=== PATIENT | female | born 1990 | race Caucasian/White ===

== ENCOUNTER 2020-02-26 14:32 | Outpatient (REF) | payer OTHER, SELFPAY | END 2020-02-26 14:33 | disposition home or self-care (01) | LOC: HO.LNP 14:32 | PROVIDERS: Visit Provider Nurse Practitioner Family | DX: Z13.89 Encounter for screening for other disorder (principal) ==

== ENCOUNTER 2020-02-26 15:11 | Outpatient (REF) | payer OTHER, SELFPAY ==
[2020-02-27 10:16] LABS: BV Int Neg Control Negative (Negative); BV Int Pos Control Positive (Positive)
[2020-03-08 10:45] LABS: CT PCR NOT DETECTED (Not Detect.); NG PCR NOT DETECTED (Not Detect.)
== END 2020-02-26 15:12 | disposition home or self-care (01) ==
LOC: HO.LAB 15:11
PROVIDERS: Visit Provider Nurse Practitioner Family
DX: N89.8 Other specified noninflammatory disorders of vagina (principal); Z32.02 Encounter for pregnancy test, result negative
CPT/HCPCS: 87480; 87491; 87510; 87591; 87660

== ENCOUNTER 2020-03-02 12:21 | Outpatient (REF) | payer OTHER, SELFPAY ==
[2020-03-03 09:06] LABS: Mumps Virus IgG Antibody <9.00 AU/mL; Rubella IgG Antibody 1.21 Index
[2020-03-03 09:07] LABS: HBsAGNum1 0.15 S/CO (0.00-0.99); Hepatitis B Surface Antigen Negative (Negative); ~HepC Num1 0.08 S/CO (0.00-0.79); ~Hepatitis C Antibody Nonreactive (Nonreactive)
[2020-03-03 09:19] LABS: HBS Num1 74.62 mIU/mL (0-7.99); HBc Num1 0.13 S/CO (0.00-0.79); Hepatitis B Core Antibody Nonreactive (Nonreactive); ~Hepatitis B Surface Antibody REACTIVE (Nonreactive)
[2020-03-04 04:08] LABS: Hepatitis A Antibody IgM 0.12 Index (0-0.79); ~Hepatitis A Antibody IgM Nonreactive (Nonreactive)
[2020-03-05 14:33] LABS: TS Negative Control Passed; TS Panel A 0; TS Panel B 0; TS Positive Control Passed; TSpotTB Negative (SeeBelow)
== END 2020-03-02 12:22 | disposition home or self-care (01) ==
LOC: HO.HMGCLDS 12:21
PROVIDERS: PCP Nurse Practitioner Family; Visit Provider Nurse Practitioner Family
DX: Z01.84 Encounter for antibody response examination (principal); Z28.3 Underimmunization status
CPT/HCPCS: 36415; 86481; 86704; 86706; 86709; 86735; 86762; 86765; 86787; 86803; 87340

== ENCOUNTER → 2020-09-24 10:21 | Outpatient (BNVA) | payer OTHER, SELFPAY | PROVIDERS: PCP Nurse Practitioner Family; Visit Provider Advanced Practice Midwife ==

== ENCOUNTER 2020-10-27 13:27 | Outpatient (REF) | payer OTHER, SELFPAY ==
[2020-10-28 02:51] LABS: CT PCR NOT DETECTED (Not Detect.); NG PCR NOT DETECTED (Not Detect.)
[2020-10-28 10:14] LABS: BV Int Neg Control Negative (Negative); BV Int Pos Control Positive (Positive)
== END 2020-10-27 13:28 | disposition home or self-care (01) ==
LOC: HO.LAB 13:27
PROVIDERS: PCP Nurse Practitioner Family; Visit Provider Advanced Practice Midwife
DX: Z11.3 Encounter for screening for infections with a predominantly sexual mode of transmission (principal); N92.6 Irregular menstruation, unspecified; Z20.2 Contact with and (suspected) exposure to infections with a predominantly sexual mode of transmission
CPT/HCPCS: 81025; 87480; 87491; 87510; 87591; 87660; 99212

== ENCOUNTER 2020-11-16 11:18 | Outpatient (REF) | payer OTHER, SELFPAY ==
--- NOTE | ~2020-11-16 | US_ITS ---
EXAMINATION: US PELVIS CLINICAL INFORMATION: Irregular menses COMPARISON: None TECHNIQUE: Ultrasound of the pelvis is performed using both transabdominal and transvaginal transducers along with Doppler. Transvaginal imaging is performed due to inadequate visualization transabdominally. FINDINGS: The uterus is anteverted and measures 8.4 x 3.6 x 5.5 cm in dimension. No focal uterine lesion is seen. Endometrial thickness is normal measuring 1.1 cm. The cervix is normal. The right ovary is normal and measures 2.1 x 1.5 x 1.3 cm. The left ovary is slightly enlarged and measures 3.8 x 3 x 3 cm, volume 18 mL. There are 2 minimally complex left ovarian cysts measuring 1.8 x 1.6 x 2.2 cm and 1.3 x 1.2 x 1.6 cm. These probably represent physiologic cysts. There is no fluid in the pelvis. US/US pelvic and transvaginal IMPRESSION: Normal-appearing uterus and right ovary. Slightly enlarged left ovary containing 2 minimally complex cysts probably representing physiologic cysts.
== END 2020-11-16 11:19 | disposition home or self-care (01) ==
LOC: HO.US 11:18
PROVIDERS: PCP Nurse Practitioner Family; Visit Provider Advanced Practice Midwife
DX: N92.5 Other specified irregular menstruation (principal)
CPT/HCPCS: 76830; 76856

== ENCOUNTER 2020-12-24 09:14 | Outpatient (REF) | payer OTHER, SELFPAY ==
[2020-12-24 09:46] LABS: Hematocrit 40.7 % (37-47); Hemoglobin 13.3 g/dl (12.0-16.0); Mean Corpuscular HGB Conc 32.7 g/dl (31.0-35.0); Mean Corpuscular Hemoglobin 27.7 pg (27.0-33.0); Mean Corpuscular Volume 84.8 fL (80-98); Mean Platelet Volume 9.3 fL (9.4-12.3); Platelet Count 249 X10*3/uL (160-400); Red Cell Distribution Width 14.4 % (11.0-16.0); White Blood Count 3.8 X10*3/uL (4.8-10.8)
[2020-12-24 10:08] LABS: Alanine Aminotransferase 34 U/L (0-31); Albumin Level 4.2 g/dL (3.5-5.0); Alkaline Phosphatase 78 U/L (39-117); Anion Gap 11 (12-20); Aspartate Amino Transferase 26 U/L (5-31); Bilirubin Total 0.9 mg/dL (0.0-1.0); Blood Urea Nitrogen 12 mg/dL (9-16); Calcium 8.9 mg/dL (8.4-10.2); Carbon Dioxide 25 mmol/L (22-29); Chloride 105 mmol/L (96-108); Cholesterol 133 mg/dL; Estimated Glomerular Filt Rate > 60; Glucose Fasting 93 mg/dL (60-99); HDL Cholesterol 65 mg/dL; LDL Cholesterol Calculated 59 mg/dl; Potassium 4.9 mmol/L (3.3-5.1); Sodium 136 mmol/L (135-145); Total Protein 7.7 g/dL (6.5-8.0); Triglycerides 46 mg/dL
[2020-12-24 10:25] LABS: HIV AB/AG Nonreactive (Nonreactive); HIV Num 1 0.06 S/CO (0.00-0.99)
[2020-12-24 10:27] LABS: Thyroid Stimulating Hormone 2.14 uIU/mL (0.32-4.0)
[2020-12-24 10:33] LABS: TSH reflex Free T4 2.08 uIU/mL (0.32-4.0)
[2020-12-24 11:05] LABS: Appearance Urine CLEAR; Color Urine YELLOW; Glucose Urine UA NEG (NEG); Leukocyte Esterase Urine TRACE (NEG); Nitrite Urine NEG (NEG); Urine Blood NEG (NEG); Urine Ketones NEG (NEG); Urine Protein NEG (NEG-TRACE)
[2020-12-24 11:30] LABS: Bacteria Urine 1+ /LPF; RBC Urine 0-2 /HPF (0); Squamous Epithelial Cell Urine 1+ /LPF; WBC Urine 0-2 /HPF (0-4)
[2020-12-24 12:35] LABS: CT PCR NOT DETECTED (Not Detect.); NG PCR NOT DETECTED (Not Detect.)
[2020-12-25 06:48] LABS: Syphilis Screen Nonreactive (Nonreactive)
== END 2020-12-24 09:15 | disposition home or self-care (01) ==
LOC: HO.LAB 09:14
PROVIDERS: PCP Nurse Practitioner Family; Visit Provider Advanced Practice Midwife
DX: Z00.00 Encounter for general adult medical examination without abnormal findings (principal); Z11.3 Encounter for screening for infections with a predominantly sexual mode of transmission; Z11.4 Encounter for screening for human immunodeficiency virus [HIV]; N92.1 Excessive and frequent menstruation with irregular cycle
CPT/HCPCS: 36415; 80053; 80061; 81001; 84443; 85027; 86780; 87389; 87491; 87591

== ENCOUNTER → 2020-12-30 11:39 | Outpatient (BNVA) | payer OTHER, SELFPAY | PROVIDERS: PCP Nurse Practitioner Family; Visit Provider Advanced Practice Midwife ==

== ENCOUNTER → 2021-01-01 12:12 | Outpatient (BNVA) | payer OTHER, SELFPAY | PROVIDERS: Visit Provider Advanced Practice Midwife | DX: N83.299 Other ovarian cyst, unspecified side (principal); N92.6 Irregular menstruation, unspecified; Z71.2 Person consulting for explanation of examination or test findings | CPT/HCPCS: 96372; 99211; Q3014 ==

== ENCOUNTER 2021-01-18 10:42 | Outpatient (REF) | payer OTHER, SELFPAY ==
[2021-01-18 11:57] LABS: Alanine Aminotransferase 13 U/L (0-31); Albumin Level 4.3 g/dL (3.5-5.0); Alkaline Phosphatase 58 U/L (39-117); Anion Gap 13 (12-20); Aspartate Amino Transferase 15 U/L (5-31); Bilirubin Total 1.5 mg/dL (0.0-1.0); Blood Urea Nitrogen 10 mg/dL (9-16); Calcium 9.2 mg/dL (8.4-10.2); Carbon Dioxide 22 mmol/L (22-29); Chloride 107 mmol/L (96-108); Cholesterol 128 mg/dL; Estimated Glomerular Filt Rate > 60; Glucose Fasting 85 mg/dL (60-99); HDL Cholesterol 59 mg/dL; LDL Cholesterol Calculated 53 mg/dl; Potassium 4.1 mmol/L (3.3-5.1); Sodium 138 mmol/L (135-145); Total Protein 7.9 g/dL (6.5-8.0); Triglycerides 81 mg/dL
[2021-01-18 12:20] LABS: TSH reflex Free T4 1.57 uIU/mL (0.32-4.0)
[2021-01-18 12:23] LABS: Syphilis Screen Nonreactive (Nonreactive)
[2021-01-18 14:42] LABS: Appearance Urine HAZY; Color Urine YELLOW; Glucose Urine UA NEG (NEG); Leukocyte Esterase Urine TRACE (NEG); Nitrite Urine NEG (NEG); UACC Culture Trigger YES; Urine Blood NEG (NEG); Urine Ketones NEG (NEG); Urine Protein NEG (NEG-TRACE)
[2021-01-18 15:15] LABS: RBC Urine 0-2 /HPF (0)
[2021-01-18 15:16] LABS: Bacteria Urine TRACE /LPF; Squamous Epithelial Cell Urine 1+ /LPF
[2021-01-18 15:55] LABS: CT PCR NOT DETECTED (Not Detect.); NG PCR NOT DETECTED (Not Detect.)
[2021-01-19 05:51] LABS: HIV AB/AG Nonreactive (Nonreactive); HIV Num 1 0.08 S/CO (0.00-0.99)
== END 2021-01-18 10:43 | disposition home or self-care (01) ==
LOC: HO.HMGCLDS 10:42
PROVIDERS: PCP Nurse Practitioner Family; Visit Provider Nurse Practitioner Family
DX: F41.9 Anxiety disorder, unspecified (principal); Z11.3 Encounter for screening for infections with a predominantly sexual mode of transmission; Z00.00 Encounter for general adult medical examination without abnormal findings
CPT/HCPCS: 80053; 80061; 81001; 81003; 84443; 86780; 87086; 87389; 87491; 87591

== ENCOUNTER 2021-03-30 13:49 | Outpatient (REF) | payer OTHER, SELFPAY ==
--- NOTE | ~2021-03-30 | US_ITS ---
EXAMINATION: US PELVIS CLINICAL INFORMATION: Ovarian cyst. COMPARISON: Ultrasound pelvis and transvaginal 11/18/2020 TECHNIQUE: Ultrasound of the pelvis is performed using both transabdominal and transvaginal transducers along with Doppler. Transvaginal imaging is performed due to inadequate visualization transabdominally. FINDINGS: Uterus: The uterus is anteverted and measures 8.9 cm in length, 4.2 cm in AP and 5.0 cm in transverse dimension. The double wall endometrial thickness is 0.6 mm. The uterus is smooth in contour and has normal myometrial echogenicity. No visible fibroid. Adnexa: Both ovaries are visualized. There is normal color-flow to the adnexa. There is no ovarian torsion. There is no pelvic ascites or fluid collection. Right ovary measures 3.7 x 1.5 x 1.7 cm and volume 4.9 mL. There is no focal lesion seen. Previously, the right ovary measured 2.1 x 1.5 x 1.3 cm and volume 2.1 mL. Left ovary measures 3.1 x 2.7 x 3.1 cm and volume 13.6 mL. There is an anechoic simple cyst measuring 2.3 x 2.0 x 1.6 cm and a complex cyst with internal echoes measuring 1.1 x 1.1 x 0.7 cm. Previously, the left ovary measured 3.8 x 3.0 x 3.0 cm and volume 17.9 mL. US/US pelvic and transvaginal IMPRESSION: Simple and complex cyst left ovary. The right ovary and the uterus are unremarkable.
== END 2021-03-30 13:50 | disposition home or self-care (01) ==
LOC: HO.US 13:49
PROVIDERS: PCP Nurse Practitioner Family; Visit Provider Advanced Practice Midwife
DX: N83.299 Other ovarian cyst, unspecified side (principal)
CPT/HCPCS: 76830; 76856

== ENCOUNTER → 2021-04-29 11:12 | Outpatient (BNVA) | payer OTHER, SELFPAY | PROVIDERS: PCP Nurse Practitioner Family; Visit Provider Advanced Practice Midwife | DX: N83.292 Other ovarian cyst, left side (principal); R10.2 Pelvic and perineal pain; N92.1 Excessive and frequent menstruation with irregular cycle; Z30.42 Encounter for surveillance of injectable contraceptive | CPT/HCPCS: Q3014 ==

== ENCOUNTER 2021-10-02 16:50 | Emergency (ER) | payer OTHER, SELFPAY ==
[2021-10-02 16:52] VITALS: BP 105/49; PULSE 89; RESP 16; TEMP 37.2; O2SAT 99; BMI 33.8
[2021-10-02] MEDS: Diphth,Pertus(ACell),Tet Adult 0.5 ML SYRINGE IM (17:40)
--- NOTE | 2021-10-02 17:56 | ED_ITS ---
HPI - Animal Bite General Chief Complaint: Animal Bite Stated Complaint: animal bite Time Seen by Provider: 10/02/21 17:31 History of Present Illness HPI narrative: Patient complains of bite from a baby mole that she picked up while she was walking 7 days ago, she has had no pain no redness no signs of infection but a friend mentioned concern about possible rabies she has had no fever no headaches no dizziness no body aches Related Data Previous Rx's Medication Instructions Recorded medroxyprogesterone 150 mg/mL 150 mg IM [id number] #1 mL 01/01/21 intramuscular suspension (Depo-Provera) Allergies Allergy/AdvReac Type Severity Reaction Status Date / Time shellfish derived Allergy Unknown itchy Verified 04/29/21 11:13 throat, tongue swelling aripiprazole [Abilify] AdvReac Unknown Hallucinati Verified 04/29/21 11:13 ons Review of Systems Review of Systems: Positive for left thumb animal bite Negatives are no fever no chills no dizziness no headache no neck pain no chest pain no shortness of breath no abdominal pain no nausea vomiting or diarrhea no fatigue no body aches no headache no confusion Yes all other systems are reviewed and are negative [facility] Past Medical History Source: nursing notes reviewed Medical History Complex ovarian cyst Decreased appetite Left breast mass Menorrhagia Paresthesia of skin Surgical History Hx of breast reduction, elective Family History Family History Father No problems noted. Mother No problems noted. Social History Social History Housing: Apartment Alcohol intake: current Alcohol intake frequency: holidays/special occasions only Patient Tobacco Use Status: Never used Tobacco Years Smoked: she smoked when she was 14 e-Cigarette/Vaping Use: Never Used Second Hand Smoke Exposure: Yes Advance Directives: No Advance Directives Information Provided: No service: No Current occupational status: employed Current occupation: [employer] Current occupational exposures/hazards: No Physical Exam ED Vital Signs: Vital Signs - 24 hr 10/02/21 16:52 Temperature 99.0 F Pulse Rate 89 Respiratory Rate 16 Blood Pressure 105/49 L Pulse Oximetry 99 Oxygen Delivery Method Room Air BMI result Body Mass Index 33.8 General appearance is no acute distress Head is normocephalic atraumatic Neck is supple Respiratory no distress Extremities full range of motion x4 Left thumb normal appearance no evidence of any wound neurovascular intact and full range of motion no swelling Neuro no focal deficits Course Course Course Narrative: I confirmed with [facility] of [facility] epidemiology us to that road and bites and specifically mole bites do not need any rabies prophylaxis and patient got a tetanus shot in was discharged Discharge Plan Discharge Clinical Impression: Bitten by mouse Patient Disposition: Home, Self-Care Additional Instructions: We gave you a tetanus shot There is no sign of any infection now We confirmed that a mole does not give rabies and you have no need to be concerned about that Prescriptions: No Action medroxyprogesterone [Depo-Provera] 150 mg/mL suspension 150 mg IM [id number] Qty: 1 3RF
== END 2021-10-02 18:08 | disposition home or self-care (01) ==
PROVIDERS: Emergency Provider Student in an Organized Health Care Education/Training Program; PCP Nurse Practitioner Family
DX: S61.052A Open bite of left thumb without damage to nail, initial encounter (principal); W55.81XA Bitten by other mammals, initial encounter; Y93.01 Activity, walking, marching and hiking; Y92.9 Unspecified place or not applicable; Y99.9 Unspecified external cause status
CPT/HCPCS: 90471; 90715; 99282; 99284

== ENCOUNTER 2022-02-08 10:22 | Emergency (ER) | payer OTHER, SELFPAY ==
--- NOTE | 2022-02-08 10:49 | ED.PSYCH ---
HPI - Psych General Chief Complaint: Psychiatric Symptoms Stated Complaint: Crisis Eval Time Seen by Provider: 02/08/22 10:45 Source: patient Limitations: no limitations History of Present Illness HPI Narrative: This is a 31 years old female was sent here by a the partial hospitalization program because auditory hallucination. The patient denies SI and HI. She has history of PTSD, she has history of major depression disorder with psychotic feature MD complaint: hallucinations Onset (ago): day(s) (1) Duration: constant History of same: Yes Relieving factors: none Exacerbating factors: none Associated psychiatric symptoms: none Related Data Home Medications Medication Instructions Recorded Confirmed lorazepam 1 mg tablet 1 mg PO BID 01/03/22 01/06/22 ondansetron HCl 4 mg tablet 4 mg PO Q6H PRN nausea/vomiting 01/03/22 01/06/22 Previous Rx's Medication Instructions Recorded hydroxyzine pamoate 50 mg capsule 50 mg PO TID PRN anxiety #90 caps 01/18/22 bupropion HCl 300 mg 24 hr tablet, 300 mg PO QAM #30 tabs 01/24/22 extended release buspirone 15 mg tablet 15 mg PO BID #60 tabs 01/24/22 prazosin 1 mg capsule 1 mg PO BEDTIME #30 caps 01/24/22 prazosin 2 mg capsule 2 mg PO BEDTIME #30 caps 01/24/22 trazodone 100 mg tablet 100 mg PO BEDTIME PRN sleep #30 01/24/22 tabs risperidone 1 mg tablet 1 mg PO BID #60 tabs 02/04/22 Allergies Allergy/AdvReac Type Severity Reaction Status Date / Time shellfish derived Allergy Unknown itchy Verified 01/03/22 11:04 throat, tongue swelling mushroom Allergy Hives Verified 01/06/22 12:10 pear Allergy Itching Verified 01/06/22 12:10 strawberry Allergy Hives Verified 01/06/22 12:10 sunflower seed Allergy Itching Verified 01/06/22 12:11 aripiprazole [Abilify] AdvReac Unknown Hallucinati Verified 01/03/22 11:04 ons Review of Systems Constitutional: Constitutional: Reports no additional constitutional complaints ENT: Reports system reviewed and no additional complaints, except as documented Cardiovascular: Cardiovascular: Reports no additional cardiovascular complaints Respiratory: Respiratory: Reports no additional respiratory complaints Gastrointestinal: Gastrointestinal: Reports no additional gastrointestinal complaints Neurologic: Reports system reviewed and no additional complaints, except as documented REPLACED BY [facility] Past Medical History Medical History Complex ovarian cyst Decreased appetite Left breast mass Menorrhagia Paresthesia of skin Scoliosis Surgical History Hx of breast reduction, elective Family History Family History Father No problems noted. Mother No problems noted. Social History Social History Household Members: None Housing: Apartment Alcohol intake: current Alcohol intake frequency: does not drink Patient Tobacco Use Status: Never used Tobacco Years Smoked: she smoked when she was 14 Smoked in Last 30 Days: No e-Cigarette/Vaping Use: Never Used Second Hand Smoke Exposure: Yes Substance Use Type: Marijuana Advance Directives: No Advance Directives Information Provided: Yes service: No Current occupational status: employed Current occupation: [employer] Current occupational exposures/hazards: No Cognitive needs: No Hearing needs: No Vision needs: No Physical Exam Vital Signs: Vital Signs: Last Vital Signs Temp 99.4 F 02/08/22 10:51 Pulse 72 02/08/22 10:51 Resp 20 02/08/22 10:51 BP 126/84 02/08/22 10:51 Pulse Ox 98 02/08/22 10:51 O2 Del Method 02/08/22 10:51 BMI result Body Mass Index 32.9 Const: General: cooperative Nutritional Appearance: average body habitus Orientation/consciousness: patient oriented x3 HEENT: Head: Yes normal to inspection General nose exam: Normal external nose present Face and sinus: Yes normal facial exam Mouth: Normal oral and palatal mucosa present Throat: Yes posterior oropharynx normal Neck: Neck: Yes normal visual inspection Chest: Chest palpation & inspection: normal inspection of the chest Resp: Effort & Inspection: normal respiratory effort Auscultation: clear to auscultation bilaterally Cardio: Palpation: normal PMI Rate: regular rate GI: Inspection: Yes normal to inspection Palpation (GI): Soft to palpation, not firm, nontender and no guarding Skin: General skin exam: no rashes or lesions noted and elasticity normal Rashes: no rashes Neuro: General: patient oriented x3 Course Reevaluation(s) Reevaluation #1: seen by crisis cleared for d/c home Time: 15:07 Medical Decision Making Lab Data Labs: Lab Results 02/08/22 02/08/22 02/08/22 Range/Units 11:04 11:04 11:04 Urine Color Yellow Urine Appearance Cloudy Urine pH 7.0 (5.0-9.0) Ur Specific [place] >= 1.030 H (1.005-1.025) Urine Protein Trace (Neg-Trace) mg/dL Urine Glucose (UA) Negative (Negative) mg/dL Urine Ketones Negative (Negative) mg/dL Urine Blood Negative (Negative) Urine Nitrite Negative (Negative) Ur Leukocyte Esterase Moderate (2+) H (Negative) Urine RBC 3-5 H (0-2) /HPF Urine WBC 0-5 (0-5) /HPF Ur Squamous Epith Cells >20 (0-2) /HPF Urine Bacteria 1+ (None Seen) Hyaline Casts 0-2 (0-2) /LPF Urine Opiates Screen Not Detected (Not Detect) Urine Fentanyl Screen Not Detected (Not Detect) Ur Barbiturates Screen Not Detected (Not Detect) Ur Phencyclidine Scrn Not Detected (Not Detect) Ur Amphetamines Screen Not Detected (Not Detect) U Benzodiazepines Scrn Not Detected (Not Detect) Urine Cocaine Screen Not Detected (Not Detect) U Marijuana (THC) Screen POSITIVE H (Not Detect) Influenza Type A (PCR) NEGATIVE (Negative) Influenza Type B (PCR) NEGATIVE (Negative) RSV RNA Qual (PCR) NEGATIVE (Negative) SARS-CoV-2 RNA (RT-PCR) NEGATIVE (Negative) Discharge Plan Discharge Clinical Impression: Post traumatic stress disorder, Depression Patient Disposition: Home, Self-Care Instructions: Depression (ED), Post Traumatic Stress Disorder (ED) Prescriptions: No Action hydroxyzine pamoate 50 mg capsule 50 mg PO TID PRN (Reason: anxiety) Qty: 90 0RF prazosin 1 mg capsule 1 mg PO BEDTIME Qty: 30 0RF prazosin 2 mg capsule 2 mg PO BEDTIME Qty: 30 0RF bupropion HCl 300 mg tablet extended release 24 hr 300 mg PO QAM Qty: 30 0RF buspirone 15 mg tablet 15 mg PO BID Qty: 60 0RF trazodone 100 mg tablet 100 mg PO BEDTIME PRN (Reason: sleep) Qty: 30 0RF risperidone 1 mg tablet 1 mg PO BID Qty: 60 0RF lorazepam 1 mg tablet 1 mg PO BID ondansetron HCl 4 mg tablet 4 mg PO Q6H PRN (Reason: nausea/vomiting) Referrals: Saroj Mercado FNP-BC [Primary Care Provider] - 2 days Interventions: [place]-Suicide Risk Severity Scale Last Done: 02/08/22 10:54 ED Discharge Assessment Last Done: 02/08/22 15:26 Discharge Date/Time: 02/08/22 15:26
[2022-02-08 10:51] VITALS: BP 126/84; PULSE 72; RESP 20; TEMP 37.4; O2SAT 98; BMI 32.9
[2022-02-08 11:19] LABS: Appearance Urine Cloudy; Color Urine Yellow; Glucose Urine UA Negative (Negative); Leukocyte Esterase Urine Moderate (2+) (Negative); Nitrite Urine Negative (Negative); Specific Gravity - Urine >= 1.030 (1.005-1.025); UMIC TRIGGER UACC YES; Urine Blood Negative (Negative); Urine Ketones Negative (Negative); Urine Protein Trace mg/dL (Neg-Trace)
[2022-02-08 11:27] LABS: Amphetamine Screen Urine Not Detected (Not Detect); Bacteria Urine 1+ (None Seen); Barbiturates, Urine Not Detected (Not Detect); Benzodiazepines Screen Urine Not Detected (Not Detect); Cannabinoid Screen Urine POSITIVE (Not Detect); Cocaine Screen Urine Not Detected (Not Detect); Fentanyl, urine Not Detected (Not Detect); Hyaline Casts Urine 0-2 /LPF (0-2); Opiate Screen Urine Not Detected (Not Detect); Phencyclidine Screen Urine Not Detected (Not Detect); Squamous Epithelial Cell Urine >20 /HPF (0-2); WBC Urine 0-5 /HPF (0-5)
[2022-02-08 11:58] LABS: Influenza A PCR NEGATIVE (Negative); Influenza B PCR NEGATIVE (Negative); Resp Syncy Virus RNA Qual PCR NEGATIVE (Negative); SARS COV2 PCR INHOUSE NEGATIVE (Negative)
== END 2022-02-08 15:26 | disposition home or self-care (01) ==
PROVIDERS: Emergency Provider Emergency Medicine; PCP Nurse Practitioner Family
DX: R44.0 Auditory hallucinations (principal); F33.1 Major depressive disorder, recurrent, moderate; F43.10 Post-traumatic stress disorder, unspecified; Z20.822 Contact with and (suspected) exposure to COVID-19; Z79.899 Other long term (current) drug therapy
CPT/HCPCS: 0241U; 80307; 81001; 99284

== ENCOUNTER 2022-02-17 09:15 | Outpatient (RCR) | payer OTHER, SELFPAY ==
[2022-01-06 12:05] VITALS: BMI 30.9
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
--- NOTE | 2022-01-06 14:12 | HO.PHPIOP ---
Case opened in treatment team.
--- NOTE | 2022-01-11 08:21 | HO.PHPIOP ---
The client called out because she is not feeling well.
--- NOTE | 2022-01-12 13:39 | P.PNPSP_ITS ---
Subjective Subjective Date of Service: 01/12/22 Reason For Visit: PTSD,MDD Medical Problems Affecting Mental Status: No Interim History: Feels mood starting to improve. More motivation, more energy in morning. Has stopped naps, night time sleep improved. States that she is functioning more. Finding PHP groups to be helpful. Continues with some passive SI, no intent or plan. Finding increased doses of Wellbutrin and prazosin helpful. Medication Compliance: Yes Side effects from medications: No Attending Groups: Yes Review of Systems Acute medical concerns: No Medical Review of Systems: unchanged Review of Systems Review of Systems Yes all other systems are reviewed and are negative Constitutional: Reports no additional constitutional complaints Mental Status Exam Mental Status Exam Narrative: NAD Patient Appearance: Well Grooomed and Appropriate Patient Orientation: Person, Place, Time and Situation Level of Consciousness: Awake and Appropriate Patient Behavior: Appropriate, Cooperative and Good Eye Contact Mood Description: Depressed (lessened) Affect Description: Depressed (Appears improving) Patient Cognition Impaired: No Ability to Follow Directions: Excellent Speech Pattern: Clear and Appropriate Memory Description: Intact Delusions: Not Present Perceptual Disturbances: Depersonalization Thought Process: Intact Thought Content: positive for Suicidal Ideation (Passive, no intent or plan at this time.) Depressive Symptoms: Increased Anxiety, Loss of Int. in Activity, Unhappiness, Thoughts of /Suicide and Difficulty Concentrating Judgement: Fair Diagnostics Vital Signs (24Hr): BMI result Body Mass Index 30.9 Assessment & Plan Assessment & Plan (1) Major depressive disorder, recurrent severe without psychotic features: Status: Acute Code(s): F33.2 - Major depressive disorder, recurrent severe without psychotic features Assessment and Plan: Feels mood starting to improve. Less vegetative symptoms. More motivation, more energy in morning. Able to get out of bed easier, get day started. Has stopped naps, not as fatigued during day. States that she is functioning more. Finding PHP groups to be helpful. Continues with some passive SI, no intent or plan. Finding increased doses of Wellbutrin and prazosin helpful. Would like to continue with current medication doses. (2) Post-traumatic stress disorder, chronic: Status: Acute Code(s): F43.12 - Post-traumatic stress disorder, chronic Plan 1. Continue with current [facility] plan of care. 2. Continue with current medication regimen. 3. Follow-up as per protocol. Patient educated on: diagnosis, medication risk/benefits and therapeutic strategies Informed Consent: understands Reason for contiued partial hosp. stay Substantial Risk for: harm to self and inability to function Certification I certify that partial hospital treatment is medically necessary due to the symptoms and problems resulting from the patient's mental illness and the failure to treat the patient at the partial hospital level of care would likely result in the patient requiring inpatient psychiatric care which could not be prevented at a less intensive level of care. I spent minutes with the patient and/or on the patient floor today, greater than?50% of which was spent counseling/coordinating care. Discharge Plan Discharge Attending provider: Arnol Shannon Medications: New prazosin 1 mg capsule 1 mg PO BEDTIME Qty: 14 0RF Rx Instructions: Take prazosin 1mg with prazosin 2mg, for total daily dose 3mg. bupropion HCl 300 mg tablet extended release 24 hr 300 mg PO QAM Qty: 14 0RF Discontinued bupropion HCl 150 mg tablet extended release 24 hr 150 mg PO DAILY No Action lorazepam 1 mg tablet 1 mg PO BID prazosin 2 mg capsule 2 mg PO BEDTIME hydroxyzine pamoate 25 mg capsule 25 mg PO TID PRN (Reason: anxiety) buspirone 15 mg tablet 15 mg PO BID trazodone 100 mg tablet 100 mg PO BEDTIME ondansetron HCl 4 mg tablet 4 mg PO Q6H PRN (Reason: nausea/vomiting)
--- NOTE | 2022-01-13 14:04 | PC.NURSE ---
Patient called out sick to the program this morning. I called patient and left her a voice mail to call me back to f/u.
--- NOTE | 2022-01-14 08:52 | PC.NURSE ---
Patient called out sick this morning. I spoke to Charley and she reported she had been vomitting with diarrhea. She stated she is drinking pedialyte. I advised Donald to call her PCP to f/u. Denied fever.
--- NOTE | 2022-01-18 15:53 | P.PNPSP_ITS ---
Subjective Subjective Date of Service: 01/18/22 Reason For Visit: PTSD,MDD Medical Problems Affecting Mental Status: No Interim History: Reports depression has lessened, anxiety remains same. Nightmares managed at this time with prazosin. Feels the increased dose of Wellbutrin is helping with depression. Interested in increasing hydroxyzine dose. No SI, no safety concern at this time. Plans on cooking Thanksgiving dinner for family. Medication Compliance: Yes Side effects from medications: No Attending Groups: Yes Review of Systems Acute medical concerns: No Medical Review of Systems: unchanged Review of Systems Review of Systems Yes all other systems are reviewed and are negative Constitutional: Reports no additional constitutional complaints Mental Status Exam Mental Status Exam Narrative: NAD Patient Appearance: Well Grooomed and Appropriate Patient Orientation: Person, Place, Time and Situation Level of Consciousness: Awake and Appropriate Patient Behavior: Appropriate, Cooperative and Good Eye Contact Mood Description: Depressed (lessened) and Anxious Affect Description: Depressed (Appears improving) and Anxious Patient Cognition Impaired: No Ability to Follow Directions: Excellent Speech Pattern: Clear and Appropriate Memory Description: Intact Delusions: Not Present Perceptual Disturbances: Depersonalization Thought Process: Intact Depressive Symptoms: Increased Anxiety, Loss of Int. in Activity and Difficulty Concentrating Judgement: Fair Diagnostics Vital Signs (24Hr): BMI result Body Mass Index 30.9 Assessment & Plan Assessment & Plan (1) Post-traumatic stress disorder, chronic: Status: Acute Code(s): F43.12 - Post-traumatic stress disorder, chronic Assessment and Plan: Discussed prazosin. Feels current dose working well to help manage nightmares. Continues feeling anxious, discussed increasing hydroxyzine to 50 mg t.i.d. p.r.n.. Patient was in agreement. (2) Major depressive disorder, recurrent severe without psychotic features: Status: Acute Code(s): F33.2 - Major depressive disorder, recurrent severe without psychotic features Assessment and Plan: Feels the increased Wellbutrin dose is helping manage depression symptoms. Continues feeling overwhelmed regarding work situation, states that it is still not resolved. Reports feeling better regarding school, feels that it is more manageable at this time. No SI, no safety concerns. Plan 1. Continue with current [facility] plan of care. 2. Increase hydroxyzine to 50 mg t.i.d. p.r.n./anxiety. 3. Continue with other medications as currently prescribed. 4. Follow-up as per protocol. Patient educated on: diagnosis, medication risk/benefits and therapeutic strategies Informed Consent: understands Reason for contiued partial hosp. stay Substantial Risk for: harm to self and inability to function Certification I certify that partial hospital treatment is medically necessary due to the symptoms and problems resulting from the patient's mental illness and the failure to treat the patient at the partial hospital level of care would likely result in the patient requiring inpatient psychiatric care which could not be prevented at a less intensive level of care. I spent minutes with the patient and/or on the patient floor today, greater than?50% of which was spent counseling/coordinating care. Discharge Plan Discharge Attending provider: Arnol Shannon Medications: New prazosin 1 mg capsule 1 mg PO BEDTIME Qty: 14 0RF Rx Instructions: Take prazosin 1mg with prazosin 2mg, for total daily dose 3mg. bupropion HCl 300 mg tablet extended release 24 hr 300 mg PO QAM Qty: 14 0RF hydroxyzine pamoate 50 mg capsule 50 mg PO TID PRN (Reason: anxiety) Qty: 90 0RF Discontinued bupropion HCl 150 mg tablet extended release 24 hr 150 mg PO DAILY hydroxyzine pamoate 25 mg capsule 25 mg PO TID PRN (Reason: anxiety) No Action lorazepam 1 mg tablet 1 mg PO BID prazosin 2 mg capsule 2 mg PO BEDTIME buspirone 15 mg tablet 15 mg PO BID trazodone 100 mg tablet 100 mg PO BEDTIME ondansetron HCl 4 mg tablet 4 mg PO Q6H PRN (Reason: nausea/vomiting)
--- NOTE | 2022-01-24 11:03 | HO.PHPPROGNO ---
Subjective Subjective Date of Service: 01/24/22 Reason For Visit: PTSD,MDD Medical Problems Affecting Mental Status: No Interim History: Describes mood as eh . Increased anxiety. Feels 'scattered . Increased frequency intrusive thoughts, passive SI. No medications past 2 days, due to mix-up with new VNA. Now has a lock-box with nurse administration of meds. Medication Compliance: Yes (when available) Side effects from medications: No Attending Groups: Yes Review of Systems Acute medical concerns: No Medical Review of Systems: unchanged Review of Systems Review of Systems Yes all other systems are reviewed and are negative Constitutional: Reports no additional constitutional complaints Mental Status Exam Mental Status Exam Narrative: NAD. anxious, wearing hoodie Patient Appearance: Appropriate Patient Orientation: Person, Place, Time and Situation Level of Consciousness: Awake and Appropriate Patient Behavior: Appropriate, Cooperative and Good Eye Contact Mood Description: Depressed and Anxious Affect Description: Depressed and Anxious Patient Cognition Impaired: No Ability to Follow Directions: Excellent Speech Pattern: Clear and Appropriate Memory Description: Intact Hallucinations: Auditory (voices, describes as more like intrusive thoughts) Delusions: Not Present Perceptual Disturbances: Depersonalization Thought Process: Intact Thought Content: positive for Obsessional Thoughts (intrusive thoughts to grab a knife, skin myself, or cut myself ) and positive for Suicidal Ideation (passive, denies any intent to harm self) Depressive Symptoms: Increased Anxiety, Loss of Int. in Activity and Difficulty Concentrating Judgement: Fair Diagnostics Vital Signs (24Hr): BMI result Body Mass Index 30.9 Assessment & Plan Assessment & Plan (1) Post-traumatic stress disorder, chronic: Status: Acute Code(s): F43.12 - Post-traumatic stress disorder, chronic Assessment and Plan: Patient reported in group this morning that she was hearing voices. Reports to this scientific writer that they are more intrusive thoughts, states that she has had them on and off throughout . Describes them as ?feeding into my SI ?. Denies any actual SI at this time, reports that she feels safe, and has no intent or plan to harm herself in any way. Patient explains that a visiting nurse service began working with her MondayJanuary 19. There was a mix up, and she had no medications available for past several days, as her meds were locked in a box. Reports miscommunication has been resolved. Charley reports experiencing increased depression, anxiety, intrusive thoughts of self-harm. Describes her thoughts today as scattered, unable to focus. We discussed current medication regimen, and possibility of adding Risperdal at bedtime to help manage AH/intrusive thoughts. She was in agreement. (2) Major depressive disorder, recurrent severe without psychotic features: Status: Acute Code(s): F33.2 - Major depressive disorder, recurrent severe without psychotic features Plan 1. Continue with current [facility] plan of care. 2. Start risperidone 0.5 mg at bedtime. 3. Refills of Wellbutrin, BuSpar, prazosin, trazodone, 30-day supplies, sent to pharmacy. 4. Follow-up as per protocol. Patient educated on: diagnosis, medication risk/benefits and therapeutic strategies Informed Consent: understands Reason for contiued partial hosp. stay Substantial Risk for: harm to self and inability to function Certification I certify that partial hospital treatment is medically necessary due to the symptoms and problems resulting from the patient's mental illness and the failure to treat the patient at the partial hospital level of care would likely result in the patient requiring inpatient psychiatric care which could not be prevented at a less intensive level of care. I spent minutes with the patient and/or on the patient floor today, greater than?50% of which was spent counseling/coordinating care. Discharge Plan Discharge Attending provider: Arnol Shannon Medications: New hydroxyzine pamoate 50 mg capsule 50 mg PO TID PRN (Reason: anxiety) Qty: 90 0RF prazosin 1 mg capsule 1 mg PO BEDTIME Qty: 30 0RF prazosin 2 mg capsule 2 mg PO BEDTIME Qty: 30 0RF bupropion HCl 300 mg tablet extended release 24 hr 300 mg PO QAM Qty: 30 0RF buspirone 15 mg tablet 15 mg PO BID Qty: 60 0RF trazodone 100 mg tablet 100 mg PO BEDTIME PRN (Reason: sleep) Qty: 30 0RF risperidone 0.5 mg tablet 0.5 mg PO BEDTIME Qty: 30 0RF Discontinued prazosin 2 mg capsule 2 mg PO BEDTIME bupropion HCl 150 mg tablet extended release 24 hr 150 mg PO DAILY hydroxyzine pamoate 25 mg capsule 25 mg PO TID PRN (Reason: anxiety) buspirone 15 mg tablet 15 mg PO BID trazodone 100 mg tablet 100 mg PO BEDTIME No Action lorazepam 1 mg tablet 1 mg PO BID ondansetron HCl 4 mg tablet 4 mg PO Q6H PRN (Reason: nausea/vomiting)
--- NOTE | 2022-01-31 10:01 | PC.NURSE ---
Patient did not show up to the program this morning. Stated she is feeling depressed and tired. Asked if she was having any SI and she stated she is having some thoughts however she denied having any plan or intent. Stated she is safe and is home with her partner. Talked to her about the importance of attending PHP consistently to help stabilize her mood. Patient plans on attending tomorrow.
--- NOTE | 2022-02-01 11:58 | HO.PHPIOP ---
I met with the client to talk about informing her family about her increased symptoms and thoughts of self harm. She states that her boyfriend is staying with her this week. She also agreed to call her mother to let her know and I sat with her while she called. She made a told her mother that she is struggling and they made a plan if the voices or thoughts get worse she will turn over a cup on her mothers kitchen table as a sign that she needs more help. The client contracts for safety and has the number for crisis which she has used in the past.
--- NOTE | 2022-02-01 14:15 | P.PNPSP_ITS ---
Subjective Subjective Date of Service: 02/01/22 Reason For Visit: PTSD,MDD Medical Problems Affecting Mental Status: No Interim History: Increased AH, telling her she would be better off . SI, with thoughts of driving car into a tress, running into traffic. Says lately has had thoughts of hanging herself. Denies any intent. VH, shadows and lights . Poor sleep. Medication Compliance: Yes Side effects from medications: No Attending Groups: Yes Review of Systems Acute medical concerns: No Medical Review of Systems: unchanged Review of Systems Review of Systems Yes all other systems are reviewed and are negative Constitutional: Reports no additional constitutional complaints Mental Status Exam Mental Status Exam Narrative: Wearing prescription sunglasses, winter jacket. SI, no intent. +AH, +VH. Tearful during encounter. Patient Appearance: Appropriate Patient Orientation: Person, Place, Time and Situation Level of Consciousness: Appropriate Patient Behavior: Appropriate, Cooperative, Anxious and Poor Eye Contact Mood Description: Depressed and Anxious Affect Description: Withdrawn, Depressed and Anxious Patient Cognition Impaired: No Ability to Follow Directions: Good Speech Pattern: Clear and Appropriate Memory Description: Intact Hallucinations: Auditory (voices saying she is no good , not supposed to be here , better off . ) and Visual Delusions: Not Present Perceptual Disturbances: Depersonalization Thought Process: Intact Thought Content: positive for Suicidal Ideation Depressive Symptoms: Increased Anxiety, Difficulty Sleeping, Crying Spells, Loss of Int. in Activity, Feelings of Worthlessness, Hopelessness, Isolating- Friends/Family, Feelings of Guilt, Unhappiness, Increased Fatigue, Thoughts of /Suicide and Difficulty Concentrating Judgement: Fair Diagnostics Vital Signs (24Hr): BMI result Body Mass Index 30.9 Assessment & Plan Assessment & Plan (1) Severe recurrent major depressive disorder with psychotic features: Status: Acute Code(s): F33.3 - Major depressive disorder, recurrent, severe with psychotic symptoms Assessment and Plan: Tearful during encounter. Has been having increased SI thoughts. States that they range from driving car into tree, cutting herself, running into street, and most recently hanging herself. States that she took sometimes has been having thoughts of going through with these, although she denies any intent at this time. Patient reports poor sleep, feeling overwhelmed. Reports having a conversation [id number] with her mother yesterday. States that she heard her mother say a sentence, which her mother reports that she did not say. This is causing patient increased anxiety, as she believes her symptom s have begun to decompensate. Increased auditory and visual hallucinations. Voices have been telling her that she is no good, that she is not supposed to be here, that none of this is right, her being here, and that she is supposed to be . Patient was tearful throughout encounter. Clinician joined us during meeting. Discussed patient's current symptoms, and safety. Reviewed the followin. She has visiting nurse that comes twice weekly, with medications in locked box. Nurse scheduled to come today at 3:00pm. 2. She is willing to take increased risperidone dose. Dose of 0.5mg BID ordered today. 3. She says her boyfriend is staying with her, will consider speaking with him on phone with clinician in order to inform him of safety concerns. She says she will not be alone. 4. Patient states that she has crisis number on her phone, and will text or call them if feels that she will act upon SI. She was recently hospitalized in November, and does not wish to go to crisis for eval, as she does not want to go back inpatient. 5. She states that she feels safe at this time, with plan in place as mentioned above. Patient was agreeable to checking in with this provider tomorrow while here at [facility]. patient was agreeable to meeting with CARE team / crisis if needed going forward, will follow-up tomorrow. (2) Post-traumatic stress disorder, chronic: Status: Acute Code(s): F43.12 - Post-traumatic stress disorder, chronic Plan 1. Continue with current [facility] plan of care. 2. Increase risperidone to 0.5 mg b.i.d.. Plan to assess with in several days for improvement of symptoms, otherwise will consider another dose increase. 3. Patient states that she feels safe to go home, please refer to notes above regarding safety. 4. Follow-up tomorrow. Patient educated on: diagnosis and therapeutic strategies Informed Consent: understands Reason for contiued partial hosp. stay Substantial Risk for: harm to self, inability to function and rapid decompensation Certification I certify that partial hospital treatment is medically necessary due to the symptoms and problems resulting from the patient's mental illness and the failure to treat the patient at the partial hospital level of care would likely result in the patient requiring inpatient psychiatric care which could not be prevented at a less intensive level of care. I spent minutes with the patient and/or on the patient floor today, greater than?50% of which was spent counseling/coordinating care. Discharge Plan Discharge Attending provider: Arnol Shannon Medications: New hydroxyzine pamoate 50 mg capsule 50 mg PO TID PRN (Reason: anxiety) Qty: 90 0RF prazosin 1 mg capsule 1 mg PO BEDTIME Qty: 30 0RF prazosin 2 mg capsule 2 mg PO BEDTIME Qty: 30 0RF bupropion HCl 300 mg tablet extended release 24 hr 300 mg PO QAM Qty: 30 0RF buspirone 15 mg tablet 15 mg PO BID Qty: 60 0RF trazodone 100 mg tablet 100 mg PO BEDTIME PRN (Reason: sleep) Qty: 30 0RF risperidone 0.5 mg tablet 0.5 mg PO BID Qty: 14 0RF Discontinued prazosin 2 mg capsule 2 mg PO BEDTIME bupropion HCl 150 mg tablet extended release 24 hr 150 mg PO DAILY hydroxyzine pamoate 25 mg capsule 25 mg PO TID PRN (Reason: anxiety) buspirone 15 mg tablet 15 mg PO BID trazodone 100 mg tablet 100 mg PO BEDTIME No Action lorazepam 1 mg tablet 1 mg PO BID ondansetron HCl 4 mg tablet 4 mg PO Q6H PRN (Reason: nausea/vomiting)
--- NOTE | 2022-02-02 09:39 | PC.NURSE ---
Patient did not show up to the program this morning. I left a message on patient's voice mail to call me back. I called patient's emergency substation design draftsperson who is her mother Donna Mcguire. She stated Donald is staying with her and she had a difficult night as she was up until 3 am cuddling with her mother. Her mother stated Donald is safe and she is sleeping at present. I asked Donna to have Donald call us when she wakes up. I also asked Tommie if she had the crisis numbers if needed and she stated she did and she knows what to do if needed. [facility] staff is aware.
--- NOTE | 2022-02-04 10:46 | PC.NURSE ---
Donald called out today. I spoke to Donald and she stated she is struggling with seeing shadows and voices telling her she is worthless and to harm herself. I asked her if she was going to hurt herself or having thoughts to hurt herself and she stated she was not going to hurt herself and she knows it is voices that she is hearing however it is overwhelming to her. Stated she has a history of hearing voices and has not experience this in a long time. Stated she has been sleeping more as this is helps with the voices. Would like an increase in Risperdal as she reports it works for an hour then stops working. Asked if Donald could come into the program as Susi wanted to see her regarding increasing her medications. Patient's brother is going to give her a ride to the program to see Susi at 12:00.
--- NOTE | 2022-02-04 12:40 | PC.NURSE ---
Donald's Risperdal increased to 1 mg BID today and prescription was sent to the pharmacy. I spoke to Donald and Donald's mother regarding the increase and the need to take the Risperdal 0.5 mg tabs out of her pill organizer and replace them with Risperdal 1 mg tabs. Both Donald and her mother Tommie verbalized understanding of the instructions. Donald will alert her visiting nurse as well regarding the change.
--- NOTE | 2022-02-04 19:37 | HO.PHPPROGNO ---
Subjective Subjective Date of Service: 02/04/22 Reason For Visit: PTSD,MDD Medical Problems Affecting Mental Status: No Interim History: Patient reports increased depression, AH, VH (shadows), and increased intrusive thoughts to self harm. Says having difficulty focusing, completing schoolwork. Feels overwhelmed. No active SI. Family members staying with her 24 hours per day currently. Says she feels safe. No benefit with increased risperidone. States it helps a little, but then it wears off . Sleep decreased. Medication Compliance: Yes Side effects from medications: No Attending Groups: Yes Review of Systems Acute medical concerns: No Medical Review of Systems: unchanged Review of Systems Review of Systems Yes all other systems are reviewed and are negative Constitutional: Reports no additional constitutional complaints Mental Status Exam Mental Status Exam Narrative: Wearing winter jacket, with kemp and dark glasses. SI, no intent. +AH, +VH. Tearful Patient Appearance: Appropriate Patient Orientation: Person, Place, Time and Situation Level of Consciousness: Appropriate Patient Behavior: Appropriate, Cooperative, Anxious and Poor Eye Contact Mood Description: Depressed and Anxious Affect Description: Depressed and Anxious Patient Cognition Impaired: No Ability to Follow Directions: Good Speech Pattern: Clear and Appropriate Memory Description: Intact Hallucinations: Auditory (negative ) and Visual (shadows) Delusions: Not Present Perceptual Disturbances: Depersonalization and Hallucinations Thought Process: Intact Thought Content: positive for Suicidal Ideation Depressive Symptoms: Increased Anxiety, Difficulty Sleeping, Crying Spells, Loss of Int. in Activity, Feelings of Worthlessness, Hopelessness, Isolating-Friends/Family, Feelings of Guilt, Unhappiness, Increased Fatigue, Thoughts of /Suicide and Difficulty Concentrating Judgement: Fair Diagnostics Vital Signs (24Hr): BMI result Body Mass Index 30.9 Assessment & Plan Assessment & Plan (1) Severe recurrent major depressive disorder with psychotic features: Status: Acute Code(s): F33.3 - Major depressive disorder, recurrent, severe with psychotic symptoms Assessment and Plan: Continues with intrusive thoughts of self harm/ SI. These are frightening her. Has no intent/plan. Family taking turns staying with her, for safety. Worried that she has schizophrenia, due to hallucinations. 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 Unable to complete semester's work. Overwhelmed, anxious. Having difficulty coming to [facility], feels vulnerable for sharing feelings in group. (2) Post-traumatic stress disorder, chronic: Status: Acute Code(s): F43.12 - Post-traumatic stress disorder, chronic Plan 1. Continue with current [facility] plan of care. 2. Increase risperidone to 1mg BID. 3. Continue with other meds as prescribed. 4. Follow-up as per protocol. Patient educated on: diagnosis, medication risk/benefits and therapeutic strategies Informed Consent: understands Reason for contiued partial hosp. stay Substantial Risk for: harm to self, inability to function, rapid decompensation and med/psych decompensation Certification I certify that partial hospital treatment is medically necessary due to the symptoms and problems resulting from the patient's mental illness and the failure to treat the patient at the partial hospital level of care would likely result in the patient requiring inpatient psychiatric care which could not be prevented at a less intensive level of care. I spent minutes with the patient and/or on the patient floor today, greater than?50% of which was spent counseling/coordinating care. Discharge Plan Discharge Attending provider: Arnol Shannon Medications: New hydroxyzine pamoate 50 mg capsule 50 mg PO TID PRN (Reason: anxiety) Qty: 90 0RF prazosin 1 mg capsule 1 mg PO BEDTIME Qty: 30 0RF prazosin 2 mg capsule 2 mg PO BEDTIME Qty: 30 0RF bupropion HCl 300 mg tablet extended release 24 hr 300 mg PO QAM Qty: 30 0RF buspirone 15 mg tablet 15 mg PO BID Qty: 60 0RF trazodone 100 mg tablet 100 mg PO BEDTIME PRN (Reason: sleep) Qty: 30 0RF risperidone 1 mg tablet 1 mg PO BID Qty: 60 0RF Discontinued prazosin 2 mg capsule 2 mg PO BEDTIME bupropion HCl 150 mg tablet extended release 24 hr 150 mg PO DAILY hydroxyzine pamoate 25 mg capsule 25 mg PO TID PRN (Reason: anxiety) buspirone 15 mg tablet 15 mg PO BID trazodone 100 mg tablet 100 mg PO BEDTIME No Action lorazepam 1 mg tablet 1 mg PO BID ondansetron HCl 4 mg tablet 4 mg PO Q6H PRN (Reason: nausea/vomiting)
--- NOTE | 2022-02-08 10:18 | HO.PHPPROGNO ---
Subjective Subjective Date of Service: 02/08/22 Reason For Visit: PTSD,MDD Medical Problems Affecting Mental Status: No Interim History: Reports ?I am not doing well ?. ?I do not feel any better, I feel like I am losing my mind ?. Increased auditory hallucinations, telling her that she is worthless, and to kill herself. Increased visual hallucinations, states they used to be shadows commonality are real people ?. Denies active SI, endorses passive SI. states I am afraid something going to happen, something is going to hurt me . States what am I my here for anymore? No improvement with increased risperidone. Crying, wearing winter coat, kemp on, dark glasses. Reports increased stress, pressure from PHP, work, school, family. Medication Compliance: Yes Side effects from medications: No Attending Groups: Yes Review of Systems Acute medical concerns: No Medical Review of Systems: unchanged Review of Systems Review of Systems Yes all other systems are reviewed and are negative Constitutional: Reports no additional constitutional complaints Mental Status Exam Mental Status Exam Narrative: Wearing winter jacket, with kemp and dark glasses. +AH, +VH. Tearful. Describes screaming during night, believed she was ?bleeding out from leg ?. Patient Appearance: Fatigued and Inappropriate (Dressed in winter coat with kemp on, dark glasses. ) Patient Orientation: Person, Place, Time and Situation Level of Consciousness: Appropriate Patient Behavior: Appropriate, Cooperative, Anxious, Crying and Poor Eye Contact Mood Description: Depressed, Fearful and Anxious Affect Description: Depressed, Fearful and Anxious Patient Cognition Impaired: No Ability to Follow Directions: Good Speech Pattern: Clear, Appropriate and Soft-Spoken Memory Description: Intact Hallucinations: Auditory (Command in nature, telling her to kill herself), Visual (People. ) and Command Delusions: Paranoid Ideation Perceptual Disturbances: Depersonalization, Derealization and Hallucinations Thought Process: Intact Thought Content: positive for Suicidal Ideation Depressive Symptoms: Increased Anxiety, Insomnia, Difficulty Sleeping, Crying Spells, Loss of Int. in Activity, Feelings of Worthlessness, Hopelessness, Isolating-Friends/Family, Feelings of Guilt, Unhappiness, Increased Fatigue, Thoughts of /Suicide, Loss of Energy and Difficulty Concentrating Judgement: Fair Diagnostics Vital Signs (24Hr): BMI result Body Mass Index 30.9 Assessment & Plan Assessment & Plan (1) Severe recurrent major depressive disorder with psychotic features: Status: Acute Code(s): F33.3 - Major depressive disorder, recurrent, severe with psychotic symptoms Assessment and Plan: Patient had increase in risperidone on Monday. Today reports symptoms continue to worsen. Increased paranoia. Increased hallucinations both visual and auditory. Voices are telling her to kill herself. Patient states she is fearful that something is going to happen to her. Discussed options with her, she is agreeable to crisis of [facility]. (2) Post-traumatic stress disorder, chronic: Status: Acute Code(s): F43.12 - Post-traumatic stress disorder, chronic Plan 1. Patient was walked to [facility] [facility] ED for crisis about. Patient educated on: diagnosis, medication risk/benefits and therapeutic strategies Informed Consent: understands Reason for contiued partial hosp. stay Substantial Risk for: harm to self, inability to function, rapid decompensation and med/psych decompensation Certification I certify that partial hospital treatment is medically necessary due to the symptoms and problems resulting from the patient's mental illness and the failure to treat the patient at the partial hospital level of care would likely result in the patient requiring inpatient psychiatric care which could not be prevented at a less intensive level of care. Total time managing care of this patient today __40__ minutes. Discharge Plan Discharge Attending provider: Arnol Shannon Medications: New hydroxyzine pamoate 50 mg capsule 50 mg PO TID PRN (Reason: anxiety) Qty: 90 0RF prazosin 1 mg capsule 1 mg PO BEDTIME Qty: 30 0RF prazosin 2 mg capsule 2 mg PO BEDTIME Qty: 30 0RF bupropion HCl 300 mg tablet extended release 24 hr 300 mg PO QAM Qty: 30 0RF buspirone 15 mg tablet 15 mg PO BID Qty: 60 0RF trazodone 100 mg tablet 100 mg PO BEDTIME PRN (Reason: sleep) Qty: 30 0RF risperidone 1 mg tablet 1 mg PO BID Qty: 60 0RF Discontinued prazosin 2 mg capsule 2 mg PO BEDTIME bupropion HCl 150 mg tablet extended release 24 hr 150 mg PO DAILY hydroxyzine pamoate 25 mg capsule 25 mg PO TID PRN (Reason: anxiety) buspirone 15 mg tablet 15 mg PO BID trazodone 100 mg tablet 100 mg PO BEDTIME No Action lorazepam 1 mg tablet 1 mg PO BID ondansetron HCl 4 mg tablet 4 mg PO Q6H PRN (Reason: nausea/vomiting)
--- NOTE | 2022-02-08 11:19 | PC.NURSE ---
Donald meet with Susi Hurt ANIMAL SKINNER. Patient struggling with AH telling her to hurt herself and VH seeing the inside of her leg bleeding. Walked patient to [facility] for a crisis evaluation with the Care Team. Susi will alert the Care Team.
--- NOTE | 2022-02-08 11:32 | PC.NURSE ---
Care Team Adela Holman reviewing prescriber Susi aldana on 02/08/22 for more information.
--- NOTE | 2022-02-09 10:22 | HO.PHPIOP ---
A referral was made to [facility]
--- NOTE | 2022-02-15 15:18 | HO.PHPIOP ---
Filemoniglesia called out because she has to attend a meeting at school.
--- NOTE | 2022-02-16 14:30 | HO.PHPIOP ---
I called and left a message for Donald to call because she left after lunch and did not attend the third group.
--- NOTE | 2022-02-17 16:09 | HO.PHPPROGNO ---
Subjective Subjective Date of Service: 02/17/22 Reason For Visit: PTSD,MDD Medical Problems Affecting Mental Status: No Interim History: Reports feeling better, improved mood. Affect more bright. Continues with some intrusive thoughts, but more manageable now that she is taking medications consistently. Sleep improved, appetite continues to fluctuate. Some passive SI, says this is baseline, no plan/intent. Spoke with college, has more time to complete assignments, which has relieved much stress. Feels stable for discharge from [facility] at this time. Medication Compliance: Yes Side effects from medications: No Attending Groups: Yes Review of Systems Acute medical concerns: No Medical Review of Systems: unchanged Review of Systems Review of Systems Yes all other systems are reviewed and are negative Constitutional: Reports no additional constitutional complaints Mental Status Exam Mental Status Exam Narrative: NAD. Patient Appearance: Appropriate Patient Orientation: Person, Place, Time and Situation Level of Consciousness: Appropriate Patient Behavior: Appropriate, Cooperative and Good Eye Contact Mood Description: Appropriate Affect Description: Appropriate Patient Cognition Impaired: No Ability to Follow Directions: Excellent Speech Pattern: Clear and Appropriate Memory Description: Intact Delusions: Not Present Thought Process: Intact Thought Content: positive for Suicidal Ideation (passive, no intent/plan, reports it is her baseline) Depressive Symptoms: Thoughts of /Suicide (passive) Judgement: Good Diagnostics Vital Signs (24Hr): BMI result Body Mass Index 30.9 Assessment & Plan Assessment & Plan (1) Major depressive disorder, recurrent severe without psychotic features: Status: Acute Code(s): F33.2 - Major depressive disorder, recurrent severe without psychotic features Assessment and Plan: Reports feeling better, improved mood. Affect bright. Hopeful. Continues with some intrusive thoughts, but more manageable now that she is taking medications consistently. Sleep improved, appetite continues to fluctuate. Boyfriend and family are supportive, and helping her to focus on her own care at this time. Some passive SI, no intent/plan. No safety concerns. She has met with her school, and has been given incompletes for grades, and told to complete them at her pace. She states that this has removed a large amount of burden, added stress. Feels stable for discharge from [facility] at this time. (2) Post-traumatic stress disorder, chronic: Status: Acute Code(s): F43.12 - Post-traumatic stress disorder, chronic Plan 1. Patient appears stable for discharge from [facility] at this time. 2. Plan is to follow-up with outpatient providers going forward. 3. 30-day supply scrips for medications sent to pharmacy. Patient educated on: diagnosis, medication risk/benefits and therapeutic strategies Informed Consent: understands Reason for contiued partial hosp. stay Substantial Risk for: stable for discharge Certification I certify that partial hospital treatment is medically necessary due to the symptoms and problems resulting from the patient's mental illness and the failure to treat the patient at the partial hospital level of care would likely result in the patient requiring inpatient psychiatric care which could not be prevented at a less intensive level of care. Total time managing care of this patient today __25__ minutes. Discharge Plan Discharge Attending provider: Arnol Shannon Medications: New prazosin 1 mg capsule 1 mg PO BEDTIME Qty: 30 0RF Rx Instructions: take with prazosin 2mg, for total 3mg at bedtime prazosin 2 mg capsule 2 mg PO BEDTIME Qty: 30 0RF Rx Instructions: take with prazosin 1mg, for total prozosin 3mg at bedtime buspirone 15 mg tablet 15 mg PO BID Qty: 60 0RF bupropion HCl [Wellbutrin XL] 300 mg tablet extended release 24 hr 300 mg PO QAM Qty: 30 0RF hydroxyzine pamoate 50 mg capsule 50 mg PO TID PRN (Reason: anxiety) Qty: 90 0RF risperidone 1 mg tablet 1 mg PO BID Qty: 60 0RF trazodone 100 mg tablet 100 mg PO BEDTIME PRN (Reason: sleep) Qty: 30 0RF Discontinued prazosin 2 mg capsule 2 mg PO BEDTIME bupropion HCl 150 mg tablet extended release 24 hr 150 mg PO DAILY hydroxyzine pamoate 25 mg capsule 25 mg PO TID PRN (Reason: anxiety) buspirone 15 mg tablet 15 mg PO BID trazodone 100 mg tablet 100 mg PO BEDTIME No Action lorazepam 1 mg tablet 1 mg PO BID ondansetron HCl 4 mg tablet 4 mg PO Q6H PRN (Reason: nausea/vomiting) Stand Alone Forms: Patient Portal Discharge page Patient Education: Depression (DC), Post Traumatic Stress Disorder (DC)
== END 2022-02-17 23:59 | disposition home or self-care (01) ==
LOC: HO.PHPA 09:15
PROVIDERS: Visit Provider Psychiatry & Neurology Psychiatry
DX: F33.2 Major depressive disorder, recurrent severe without psychotic features (principal); F43.12 Post-traumatic stress disorder, chronic; Z79.899 Other long term (current) drug therapy
CPT/HCPCS: 90853

== ENCOUNTER 2022-10-17 13:21 | Outpatient (AMB) | payer OTHER, SELFPAY ==
[2022-10-17 13:33] VITALS: BP 102/76; PULSE 82; O2SAT 98
--- NOTE | 2022-10-17 13:33 | MHC.PC.OV ---
Vital Signs 10/17/22 13:33 Height 5 ft 2 in Weight 164 lb 4 oz BMI 30.0 BP 102/76 Blood Pressure Location Rt brachial Position Sitting Pulse 82 Pulse Source Pulse Oximeter Pulse Oximetry (%) 98 Oxygen Delivery Method Room Air Intake Visit Reasons: PE/overdue Allergies shellfish derived Allergy (Unknown, Verified 10/17/22 13:35) itchy throat, tongue swelling mushroom Allergy (Verified 10/17/22 13:35) Hives pear Allergy (Verified 10/17/22 13:35) Itching strawberry Allergy (Verified 10/17/22 13:35) Hives sunflower seed Allergy (Verified 10/17/22 13:35) Itching aripiprazole [Abilify] Adverse Reaction (Unknown, Verified 10/17/22 13:35) Hallucinations Medication List - Last Reconciled 10/17/22 by FELICIANO Queen bupropion HCl (Wellbutrin XL) 300 mg PO QAM buspirone 15 mg PO BID epinephrine (EpiPen 2-Stephon) 0.3 mg (0.3 mL) IM Q4H PRN fluticasone propionate 50 mcg/actuation (Allergy Relief (fluticasone)) 1 spray intranasal Q12H hydroxyzine pamoate 50 mg PO TID PRN lorazepam 1 mg PO BID 30 days ondansetron HCl 4 mg PO Q6H PRN prazosin 2 mg PO BEDTIME prazosin 1 mg PO BEDTIME risperidone 1 mg PO BID trazodone 100 mg PO BEDTIME PRN Tobacco use date assessed: 10/17/22 Dental Screening Dental Screen Date: 10/17/22 Did you have a dental visit in the last 12 months?: Yes Did you have a dental problem in the last 6 months where you did not have access to dental care?: No Was dental information given to patient?: Patient has dentist HPI PE/overdue HPI Details Pt is here for a PE. Will order labs. 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 anxiety/depression. Doing well on current med regime. Pt reports meditation has helped. pt is actively looking for a therapist, will get our team involved, denies any SI or HI. [facility] Medical History Complex ovarian cyst Decreased appetite Left breast mass Menorrhagia Paresthesia of skin Scoliosis Surgical History Hx of breast reduction, elective Family History Father No problems noted. Mother No problems noted. Social History Household Members: None Housing: Apartment Alcohol intake: current Alcohol intake frequency: does not drink Patient Tobacco Use Status: Never used Tobacco Years Smoked: she smoked when she was 14 e-Cigarette/Vaping Use: Never Used Second Hand Smoke Exposure: Yes Substance Use Type: Marijuana service: No Current occupational status: employed Current occupation: [employer] Current occupational exposures/hazards: No Cognitive needs: No Hearing needs: No Vision needs: No Questionnaire Thrive Questionnaire Date Thrive assessed: 01/03/22 CARYN-7 AMB Questionnaire CARYN-7 Date CARYN - 7 assessed: 01/03/22 Source: Developed by Drs. Darrell Hogue, Lyubov Feliz, Edwin Stock and colleagues, with an educational kali from [employer] Review of Systems Const Denies chills and Denies fever(s) Eyes Denies blurry vision ENT Denies vertigo, Denies dizziness and Denies sore throat Card Denies chest pain at rest, Denies chest pain with activity, Denies diaphoresis, Denies dyspnea and Denies dyspnea on exertion Resp Denies cough, Denies dyspnea, Denies dyspnea on exertion and Denies wheezing GI Denies abdominal pain, Denies melena, Denies hematochezia, Denies constipation, Denies diarrhea and Denies loose stools Denies hematuria Musc Denies numbness and Denies tingling Skin/Breast Denies lesions Neuro Denies vertigo, Denies dizziness, Denies numbness and Denies tingling Psych Denies anxiety, Denies depression, Denies homicidal ideation, Denies suicidal ideation and Denies other (substance abuse) Aller/Immun Denies wheezing Physical exam (Primary Care) Vital Signs: Last Vital Signs Pulse 82 10/17/22 13:33 BP 102/76 10/17/22 13:33 Pulse Ox 98 10/17/22 13:33 Oxygen Delivery Method Room Air 10/17/22 13:33 BMI result Body Mass Index 30.0 Tobacco/Smoking Status: Tobacco use Status Tobacco use date assessed 10/17/22 10/17/22 13:38 Patient Tobacco Use Status Never used Tobacco 10/17/22 13:38 e-Cigarette/Vaping Use Never Used 10/17/22 13:38 Thrive Assessment: Date of Thrive Assessment Date Thrive assessed 01/03/22 10/17/22 13:38 Const General: cooperative Nutritional Appearance: obese Orientation/consciousness: patient oriented x3 HENMT Head: Yes normal to inspection, Yes normocephalic and Yes atraumatic Ears: TM's normal bilaterally Eyes General: appearance normal, both eyes and all related structures Alignment and Position: alignment normal and position normal Neck Neck: Yes normal visual inspection and Yes no lymphadenopathy Thyroid: Thyroid normal Resp Effort & Inspection: normal respiratory effort Auscultation: clear to auscultation bilaterally Cardio Rate: regular rate Rhythm: regular rhythm Heart sounds: S1 normal heart sound present, S2 normal heart sound present and no murmurs GI Palpation (GI): Soft to palpation and nontender Auscultation: normal bowel sounds Skin Rashes: no rashes Neuro General: patient oriented x3, moves all extremities, no focal motor deficits and deep tendon reflexes 2+ bilaterally Romberg Test: Negative Psych Appearance: grossly normal Mental Status: mental status grossly normal Speech and movement: Normal speech and movement present Affect: normal affect Attitude: cooperative Thought process: Normal thought process present Thought content: Normal thought content present Insight: Good insight present (Psych) Judgement: Good judgement present (Psych) Assessment and Plan Assessment & Plan (1) Physical exam: Code(s): Z00.00 - Encounter for general adult medical examination without abnormal findings Plan: Labs ordered (2) Depression with anxiety: Code(s): F41.8 - Other specified anxiety disorders Plan The patient agreed to the use of a medical equipment technician for this encounter. Scribed for FELICIANO Dillon by Sophy Panda medical equipment technician, on 10/17/2022 at 13:40 EST. Orders: Orders Comprehensive [place]. Panel Fast Today Z00.00 - Encounter for general adult medical examination without abnormal findings Lipid Panel Today Z00.00 - Encounter for general adult medical examination without abnormal findings TSH reflex Free T4 Today Z00.00 - Encounter for general adult medical examination without abnormal findings Complete Blood Count Auto Diff Today Z00.00 - Encounter for general adult medical examination without abnormal findings UA CC w/rflx Micro + Cult Today Z00.00 - Encounter for general adult medical examination without abnormal findings Medications: New epinephrine (EpiPen 2-Stephon) 0.3 mg (0.3 mL) IM Q4H PRN 2 ea 2RF anaphylaxis Coding Level of Care Code Est Pt Prev Care 18-39y(37420) Diagnoses Physical exam Z00.00 Depression with anxiety F41.8
== END 2022-10-17 16:30 | disposition home or self-care (01) ==
PROVIDERS: Visit Provider Nurse Practitioner Family
DX: Z00.00 Encounter for general adult medical examination without abnormal findings (principal); F41.8 Other specified anxiety disorders
CPT/HCPCS: 99395

== ENCOUNTER → 2023-04-03 23:59 | Outpatient (BNV) | payer OTHER, SELFPAY | PROVIDERS: PCP Nurse Practitioner Family; Visit Provider Nurse Practitioner Family | DX: F33.9 Major depressive disorder, recurrent, unspecified (principal); F41.9 Anxiety disorder, unspecified | CPT/HCPCS: G0179 ==

== ENCOUNTER 2023-04-26 15:02 | Outpatient (AMB) | payer OTHER, SELFPAY ==
--- NOTE | 2023-04-26 15:03 | MHC.PC.OV ---
Vital Signs 04/26/23 15:04 Height 5 ft 2 in Weight 163 lb 8 oz BMI 29.9 BP 100/68 Blood Pressure Location Rt brachial Position Sitting Pulse 83 Pulse Source Pulse Oximeter Pulse Oximetry (%) 97 Oxygen Delivery Method Room Air Intake Visit Reasons: 6 month fu Intake Note: Pt is here to follow up for anxiety and depression Allergies shellfish derived Allergy (Unknown, Verified 04/26/23 17:12) itchy throat, tongue swelling mushroom Allergy (Verified 04/26/23 17:12) Hives pear Allergy (Verified 04/26/23 17:12) Itching strawberry Allergy (Verified 04/26/23 17:12) Hives sunflower seed Allergy (Verified 04/26/23 17:12) Itching aripiprazole [Abilify] Adverse Reaction (Unknown, Verified 04/26/23 17:12) Hallucinations Medication List - Last Reconciled 04/26/23 by FELICIANO Queen bupropion HCl (Wellbutrin XL) 300 mg PO QAM buspirone 15 mg PO BID epinephrine (EpiPen 2-Stephon) 0.3 mg (0.3 mL) IM Q4H PRN fluticasone propionate 50 mcg/actuation (Allergy Relief (fluticasone)) 1 spray intranasal Q12H hydroxyzine pamoate 50 mg PO TID PRN lorazepam 1 mg PO BID 30 days prazosin 2 mg PO BEDTIME prazosin 1 mg PO BEDTIME risperidone 1 mg PO BID trazodone 100 mg PO BEDTIME PRN Tobacco use date assessed: 04/26/23 Dental Screening Dental Screen Date: 04/26/23 Did you have a dental visit in the last 12 months?: Yes Did you have a dental problem in the last 6 months where you did not have access to dental care?: No Was dental information given to patient?: Patient has dentist HPI 6 month fu HPI Details anxiety and depression: has a therapist and psychiatrist, did stop taking her meds, now back on them. 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 She reports doing well overall and is in good spirits. Denies any SI or HI. [facility] Medical History Complex ovarian cyst Decreased appetite Left breast mass Menorrhagia Paresthesia of skin Scoliosis Surgical History Hx of breast reduction, elective Family History Father No problems noted. Mother No problems noted. Social History Household Members: None Housing: Apartment Alcohol intake: current Alcohol intake frequency: does not drink Patient Tobacco Use Status: Never used Tobacco Years Smoked: she smoked when she was 14 e-Cigarette/Vaping Use: Never Used Second Hand Smoke Exposure: Yes Substance Use Type: Marijuana service: No Current occupational status: employed Current occupation: [employer] Current occupational exposures/hazards: No Cognitive needs: No Hearing needs: No Vision needs: No Questionnaire Thrive Questionnaire Date Thrive assessed: 01/03/22 CARYN-7 AMB Questionnaire CARYN-7 Date CARYN - 7 assessed: 01/03/22 Source: Developed by Drs. Darrell Hogue, Lyubov Feliz, Edwin Stock and colleagues, with an educational kali from [employer]. Review of Systems Const Reports as per HPI Physical exam (Primary Care) Vital Signs: Last Vital Signs Pulse 83 04/26/23 15:04 BP 100/68 04/26/23 15:04 Pulse Ox 97 04/26/23 15:04 Oxygen Delivery Method Room Air 04/26/23 15:04 BMI result Body Mass Index 29.9 Tobacco/Smoking Status: Tobacco use Status Tobacco use date assessed 04/26/23 04/26/23 15:11 Patient Tobacco Use Status Never used Tobacco 04/26/23 15:04 e-Cigarette/Vaping Use Never Used 04/26/23 15:04 Thrive Assessment: Date of Thrive Assessment Date Thrive assessed 01/03/22 04/26/23 15:04 Const Other: in good spirits General: cooperative Orientation/consciousness: patient oriented x3 Resp Effort & Inspection: normal respiratory effort Auscultation: clear to auscultation bilaterally Cardio Rate: regular rate Rhythm: regular rhythm Heart sounds: S1 normal heart sound present and S2 normal heart sound present Neuro General: patient oriented x3 Psych Appearance: grossly normal Mental Status: mental status grossly normal Speech and movement: Normal speech and movement present Affect: normal affect Attitude: cooperative Thought process: Normal thought process present Thought content: Normal thought content present Insight: Good insight present (Psych) Judgement: Good judgement present (Psych) Assessment and Plan Assessment & Plan (1) Depression with anxiety: Code(s): F41.8 - Other specified anxiety disorders Plan: continue meds and cont to follow up with therapist and psychiatrist Plan The patient agreed to the use of a biomedical specialist for this encounter. Scribed for FELICIANO Dillon by Sophy Panda biomedical specialist, on 04/26/2023 at 15:30 EST. Coding Level of Care Code Est Pt Level 3 (90429) Diagnoses Depression with anxiety F41.8
[2023-04-26 15:04] VITALS: BP 100/68; PULSE 83; O2SAT 97; BMI 29.9
== END 2023-04-26 15:39 | disposition home or self-care (01) ==
PROVIDERS: PCP Nurse Practitioner Family; Visit Provider Nurse Practitioner Family
DX: F41.8 Other specified anxiety disorders (principal)
CPT/HCPCS: 99213

== ENCOUNTER 2024-01-22 14:21 | Outpatient (AMB) | payer OTHER, SELFPAY ==
[2024-01-22 14:32] VITALS: BP 102/70; PULSE 101; O2SAT 99; BMI 31.1
--- NOTE | 2024-01-22 14:32 | A.OFFPC_ITS ---
Vital Signs 01/22/24 14:32 Height 5 ft 2 in Weight 170 lb 2 oz BMI 31.1 BP 102/70 Blood Pressure Location Rt brachial Position Sitting Pulse 101 H Pulse Source Pulse Oximeter Pulse Oximetry (%) 99 Oxygen Delivery Method Room Air Intake Visit Reasons: Depression/Anxiety Allergies shellfish derived Allergy (Unknown, Verified 01/22/24 17:14) itchy throat, tongue swelling mushroom Allergy (Verified 01/22/24 17:14) Hives pear Allergy (Verified 01/22/24 17:14) Itching strawberry Allergy (Verified 01/22/24 17:14) Hives sunflower seed Allergy (Verified 01/22/24 17:14) Itching aripiprazole [Abilify] Adverse Reaction (Unknown, Verified 01/22/24 17:14) Hallucinations Medication List - Last Reconciled 01/22/24 by BESSIE QueenP- bupropion HCl XL (Wellbutrin XL) 300 mg PO QAM buspirone 15 mg PO BID epinephrine (EpiPen 2-Stephon) 0.3 mg (0.3 mL) IM Q4H PRN fluticasone propionate 50 mcg/actuation (Allergy Relief (fluticasone)) 1 spray intranasal Q12H hydroxyzine pamoate 50 mg PO TID PRN lorazepam 1 mg PO BID 30 days prazosin 2 mg PO BEDTIME prazosin 1 mg PO BEDTIME risperidone 1 mg PO BID trazodone 100 mg PO BEDTIME PRN Tobacco use date assessed: 01/22/24 Dental Screening Dental Screen Date: 01/22/24 Did you have a dental visit in the last 12 months?: Yes Did you have a dental problem in the last 6 months where you did not have access to dental care?: No Was dental information given to patient?: Patient has dentist HPI Depression/Anxiety HPI Details History of Present Illness The patient is a 33-year-old female presenting with exacerbation of anxiety disorder symptoms, which have intensified in her employment environment. The patient reports experiencing anxiety attacks triggered without a clear, singular precipitant. She has been taking Lorazepam 0.5 mg as needed to manage these episodes. The patient cites stress from being the sole employee on site during weekends at her place of employment, where she feels overburdened by responsibilities beyond her job description. Additionally, the patient reports worsening of her symptoms correlating with seasonal affective disorder due to shorter daylight hours, referred to as winter blues. She has consulted with her psychiatrist, Viki Miranda, and a psychologist, whom she sees weekly. Despite therapeutic interventions, the patient describes a slow recovery from anxiety attacks, taking up to two or three days to return to baseline function. 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 - Reports being the only staff member on Saturdays, responsible for opening and closing. - Cites overwork and inability to refuse additional tasks. - Has a visiting nurse three times a wee k to assist with medication management. Review of Systems - Psychiatric: Reports anxiety and stres s related to work environment and seasonal changes. denies any si or hi Physical Exam - Cardiovascular- Heart sounds normal wi th no murmurs. - Respiratory- Lungs clear to auscultati on bilaterally. A+Ox3 no acute distress thinking clear, speaking in full sentences Results Plan - Anxiety Disorder: Discussed the need t o limit work hours to no more than 20 hours per week, avoiding weekends and working alone. Reinforce medication adherence and continue current psychotherapy sessions. - Seasonal Affective Disorder: Considera tion of light therapy and discussing potential adjustment in medication under psychiatric care. Patient was informed and verbally consented to the use of an ambient scribe for clinic note documentation during this visit. Discussion Notes During today's visit, we addressed the exacerbation of the patient's anxiety disorder, exacerbated by both occupational stress and seasonal affective disorder. I emphasized the importance of setting boundaries at work to manage her anxiety effectively. We agreed on a letter from me stating her work limitations for medical reasons to support her need to reduce work hours and responsibilities. I recommended she continue her current therapeutic sessions and consider the use of a light therapy day lamp to mitigate the seasonal effects on her mood. We discussed future adjustments to her medication regime should symptoms persist or worsen, in coordination with her psychiatrist. I assured her of my support and instructed her to reach out should she encounter any complications or need further accommodations. Patient Instructions - Limit workdays to a maximum of 20 hour s per week, 4hrs each shift - Avoid working weekends or being the so le employee on site. - Continue attending appointments with p sychiatrist and psychologist as scheduled. - Adhere to prescribed medication schedu le and inform health providers about any changes in symptoms. - Consider using a light therapy lamp to alleviate seasonal depressive symptoms. - Contact the clinic if anxiety symptoms persist or worsen. [facility] Medical History Complex ovarian cyst Decreased appetite Left breast mass Menorrhagia Paresthesia of skin Scoliosis Surgical History Hx of breast reduction, elective Family History Father No problems noted. Mother No problems noted. Social History Household Members: None Housing: Apartment Alcohol intake: current Alcohol intake frequency: does not drink Patient Tobacco Use Status: Never used Tobacco Years Smoked: she smoked when she was 14 e-Cigarette/Vaping Use: Never Used Second Hand Smoke Exposure: Yes Substance Use Type: Marijuana service: No Current occupational status: employed Current occupation: [employer] Current occupational exposures/hazards: No Cognitive needs: No Hearing needs: No Vision needs: No Questionnaire PHQ-9 Over the last 2 weeks, how often have you been bothered by any of the following problems? 1. Little interest or pleasure in doing things: nearly every day 2. Feeling down, depressed, or hopeless: nearly every day 3. Trouble falling or staying asleep, or sleeping too much: more than half the days 4. Feeling tired or having little energy: more than half the days 5. Poor appetite or overeating: more than half the days 6. Feeling bad about yourself - or that you are a failure or have let yourself or your family down: more than half the days 7. Trouble concentrating on things, such as reading the newspaper or watching television: several days 8. Moving or speaking so slowly that other people could have noticed. Or the opposite - being so fidgety or restless that you have been moving around a lot more than usual: several days 9. Thoughts that you would be better off or of hurting yourself in some way: more than half the days Total score: 18 Depression Screening Interpretation: Positive Depression Screening Done: Yes 97205 - PHQ-9 Billing: Yes Source: Developed by Drs. Darrell Hogue, Lyubov Feliz, Edwin Stock and colleagues, with an educational kali from [employer]. Thrive Questionnaire Date Thrive assessed: 01/22/24 I am a: Patient What is your living situation today?: I have a steady place to live Within the past 12 months, did the food you bought not last and you didn't have the money to get more?: Sometimes True Within the past 12 months, did you worry whether your food would run out before you got money to buy more?: Sometimes True Do you have trouble paying for medicines?: No Do you have trouble getting transportation to medical appointments?: No Do you have trouble paying your heating and electricity bill?: Yes Do you have trouble taking care of your child, family member or friend?: No Do you have trouble with day-to-day activities such as bathing, preparing meals, shopping, managing finances, etc.?: Yes Are you currently unemployed and looking for a job?: No Are you interested in more education?: I choose not to answer this question Please select the resources that you would like help with: Food, Utilities and Daily support Currently or been in a relationship where the following occur: No concerns reported THRIVE Score: 3 AUDIT C Alcohol Use Questionnaire (AUDIT-C) 1. How often do you have a drink containing alcohol?: Never 3. How often do you have six or more drinks on one occasion?: Never Total Score: 0 Score Reviewed/Action Taken: Yes CARYN-7 AMB Questionnaire CARYN-7 Date CARYN - 7 assessed: 01/22/24 Feeling nervous, anxious, or on edge: 2 = More than half the days Not being able to stop or control worryin = More than half the days Worrying too much about different things: 2 = More than half the days Trouble relaxin = More than half the days Being so restless that it is hard to sit still: 2 = More than half the days Becoming easily annoyed or irritable: 2 = More than half the days Feeling afraid as if something awful might happen: 2 = More than half the days Total CARYN-7 score (0-4 normal; 5-9 mild; 10-14 moderate; 15-21 severe): 14 Source: Developed by Lyubov Rowe B.W. Tray, Edwin Stock and colleagues, with an educational kali from [employer]. CARYN-7 Assessment Billing CAYRN-7 Assessment Tool: CARYN-7 Assessment 20440 Physical exam (Primary Care) Vital Signs: Last Vital Signs Pulse 101 H 01/22/24 14:32 BP 102/70 01/22/24 14:32 Pulse Ox 99 01/22/24 14:32 Oxygen Delivery Method Room Air 01/22/24 14:32 BMI result Body Mass Index 31.1 Tobacco/Smoking Status: Tobacco use Status Tobacco use date assessed 01/22/24 01/22/24 14:35 Patient Tobacco Use Status Never used Tobacco 01/22/24 14:35 e-Cigarette/Vaping Use Never Used 01/22/24 14:35 PHQ-9: PHQ-9 Score PHQ-9: Total score 18 01/22/24 15:45 Depression Screening Interpretation: Positive Thrive Assessment: Date of Thrive Assessment Date Thrive assessed 01/22/24 01/22/24 14:35 Currently or been in a relationship where the following occur: No concerns reported Coding Level of Care Code Est Pt Level 3 (10358) Diagnoses Depression with anxiety F41.8 Additional Codes CARYN-7 Assessment Billing - CARYN-7 Assessment Tool: CARYN-7 Assessment 01839 ([id number]) PHQ-9 - 83509 - PHQ-9 Billing: Yes ([id number]) Assessment & Plan Assessment & Plan (1) Depression with anxiety: Code(s): F41.8 - Other specified anxiety disorders Category: Medical Plan .
== END 2024-01-22 16:08 | disposition home or self-care (01) ==
PROVIDERS: PCP Nurse Practitioner Family; Visit Provider Nurse Practitioner Family
DX: F41.8 Other specified anxiety disorders (principal)

== ENCOUNTER → 2024-01-22 14:21 | Outpatient (BNVA) | payer OTHER, SELFPAY | PROVIDERS: PCP Nurse Practitioner Family; Visit Provider Nurse Practitioner Family | DX: F41.8 Other specified anxiety disorders (principal) | CPT/HCPCS: 96127; 99212 ==

== ENCOUNTER 2024-04-29 08:48 | Outpatient (REF) | payer OTHER, SELFPAY ==
--- NOTE | ~2024-04-29 | XR_ITS ---
EXAMINATION: XR SHOULDER, RIGHT CLINICAL INFORMATION: M25.511 - Pain in right shoulder COMPARISON: None available. TECHNIQUE: AP external rotation, Grashey, scapular Y, and axillary views of the right shoulder. FINDINGS: No acute cortical disruption or malalignment. No lytic or blastic lesions. No metallic or radiopaque foreign body. No subcutaneous emphysema. XR/XR shoulder RT min 2V IMPRESSION: Normal right shoulder. Electronically signed by: Blane Barkley MD 04/30/2024 08:59 AM [facility]
== END 2024-04-29 08:49 | disposition home or self-care (01) ==
LOC: HO.HMGCX 08:48
PROVIDERS: PCP Nurse Practitioner Family; Visit Provider Nurse Practitioner Family
DX: F41.9 Anxiety disorder, unspecified (principal); F32.9 Major depressive disorder, single episode, unspecified; M25.511 Pain in right shoulder
CPT/HCPCS: 73030; 96127; 99212

== ENCOUNTER 2024-04-29 08:48 | Outpatient (AMB) | payer OTHER, SELFPAY ==
[2024-04-29 08:50] VITALS: BP 96/60; PULSE 78; RESP 18; TEMP 36.9; O2SAT 97; BMI 31.3
--- NOTE | 2024-04-29 08:50 | A.OFFPC_ITS ---
Vital Signs 04/29/24 08:50 Height 5 ft 2 in Weight 171 lb BMI 31.3 BP 96/60 Blood Pressure Location Rt brachial Position Sitting Respiration 18 Pulse 78 Pulse Source Pulse Oximeter Temp 98.4 F Temp Source Oral Pulse Oximetry (%) 97 Oxygen Delivery Method Room Air Intake Visit Reasons: Medications follow up Intake Note: Pt is here today for a follow up visit. Allergies shellfish derived Allergy (Unknown, Verified 04/29/24 09:44) itchy throat, tongue swelling mushroom Allergy (Verified 04/29/24 09:44) Hives pear Allergy (Verified 04/29/24 09:44) Itching strawberry Allergy (Verified 04/29/24 09:44) Hives sunflower seed Allergy (Verified 04/29/24 09:44) Itching aripiprazole [Abilify] Adverse Reaction (Unknown, Verified 04/29/24 09:44) Hallucinations Medication List - Last Reconciled 04/29/24 by LINDA Queen-ADELAIDE bupropion HCl SR mg PO QAM bupropion HCl SR mg PO DAILY bupropion HCl XL (Wellbutrin XL) 150 mg PO QAM epinephrine (EpiPen 2-Stephon) 0.3 mg (0.3 mL) IM Q4H PRN fluticasone propionate 50 mcg/actuation (Allergy Relief (fluticasone)) 1 spray intranasal Q12H hydroxyzine HCl 25 mg PO BEDTIME lorazepam 1 mg PO BID 30 days prazosin 1 mg PO QPM prazosin mg PO risperidone 1 mg PO BID trazodone 100 mg PO BEDTIME PRN Tobacco use date assessed: 04/29/24 Dental Screening Dental Screen Date: 04/29/24 Did you have a dental visit in the last 12 months?: Yes Did you have a dental problem in the last 6 months where you did not have access to dental care?: No Was dental information given to patient?: Patient has dentist HPI Medications follow up HPI Details Chief Complaint The patient presents for follow-up regarding anxiety and depressive disorders and reports right shoulder pain due to previous dislocations. History of Present Illness The patient is a 33-year-old female presenting with concerns regarding her generalized anxiety disorder and depressive disorder. She acknowledges recent changes in her occupational status after resigning from a stressful job and is actively seeking new employment, which is positively anticipated to improve her lifestyle and mental health stability. Her psychiatric care includes therapy sessions and consultations with a psychiatrist, with favorable outcomes reported. She expresses concern about right shoulder pain due to past dislocations, noting a positive Jobes test during examination. Future diagnostics include an X-ray to assess the condition thoroughly. Social History - Employment: Currently unemployed, seek ing new employment after leaving a stressful job. - Living situation: Lives with family, a ccompanied by her mother to the visit. - Functional status: Engages with therap y services and complies with psychiatric recommendations. Health Maintenance Review of Systems - Psychiatric: Reports anxiety and depre ssive symptoms; Denies social isolation. - Musculoskeletal: Reports right shoulde r pain and recurrent dislocations. -denies any SI or HI Physical Exam General: Cooperative, healthy appearing, comfortable, no acute distress and well developed Orientation: Patient oriented x3 Limitations: No limitations Head: Normal to inspection Ears: Hearing grossly normal bilaterally Nose: Normal external nose present Face and sinus: Normal facial exam Eyes: Appearance normal, both eyes and all related structures Neck: Normal visual inspection and Yes full ROM Respiratory: Normal respiratory effort and able to speak in complete sentences. Clear to auscultation bilaterally Cardiovascular: Regular rate and rhythm. Normal S1 and S2 GI: Normal to inspection. Soft to palpation and nontender Skin: No rashes or lesions noted Neuro: Patient oriented x3 Extremities: Positive Jobes test on the right shoulder, otherwise normal to inspection Results - Planned diagnostic imaging: X-ray of t he right shoulder. Plan Care continues for generalized anxiety disorder and depressive disorder, with the patient actively involved with psychiatric treatment. Management for the right shoulder dislocation involves a scheduled X-ray to examine structural issues further. The patient's recent gastrointestinal upset appears acute and non-recurrent, warranting no further immediate intervention. Obtaining employment remains an important psychosocial goal encouraged to provide routine and economic support. Discussion Notes Patient Instructions - Continue attending scheduled therapy a nd psychiatrist sessions. - Await the upcoming X-ray for your righ t shoulder and follow up accordingly for results. - Monitor for any recurring symptoms of nausea or vomiting, and ensure adequate rest. - Pursue new employment opportunities as this will benefit your mental health well-being. [facility] [place] Medical History Complex ovarian cyst Decreased appetite Left breast mass Menorrhagia Paresthesia of skin Scoliosis Surgical History Hx of breast reduction, elective Family History Father No problems noted. Mother No problems noted. Social History Household Members: None Housing: Apartment Alcohol intake: current Alcohol intake frequency: does not drink Patient Tobacco Use Status: Never used Tobacco Years Smoked: she smoked when she was 14 e-Cigarette/Vaping Use: Never Used Second Hand Smoke Exposure: Yes Substance Use Type: Marijuana service: No Current occupational status: employed Current occupation: [email or web address] Current occupational exposures/hazards: No Cognitive needs: No Hearing needs: No Vision needs: Yes Questionnaire PHQ-9 Over the last 2 weeks, how often have you been bothered by any of the following problems? 1. Little interest or pleasure in doing things: several days 2. Feeling down, depressed, or hopeless: several days 3. Trouble falling or staying asleep, or sleeping too much: more than half the days 4. Feeling tired or having little energy: more than half the days 5. Poor appetite or overeating: several days 6. Feeling bad about yourself - or that you are a failure or have let yourself or your family down: nearly every day 7. Trouble concentrating on things, such as reading the newspaper or watching television: more than half the days 8. Moving or speaking so slowly that other people could have noticed. Or the opposite - being so fidgety or restless that you have been moving around a lot more than usual: more than half the days 9. Thoughts that you would be better off or of hurting yourself in some way: more than half the days Total score: 16 Depression Screening Interpretation: Positive Depression Screening Done: Yes 21667 - PHQ-9 Billing: Yes Source: Developed by Drs. Darrell Hogue, Lyubov Feliz, Edwin Stock and colleagues, with an educational kali from [employer]. Thrive Questionnaire Date Thrive assessed: 04/29/24 I am a: Patient What is your living situation today?: I have a place to live, but I am worried about losing it in the future Within the past 12 months, did the food you bought not last and you didn't have the money to get more?: Sometimes True Within the past 12 months, did you worry whether your food would run out before you got money to buy more?: Sometimes True Do you have trouble paying for medicines?: No Do you have trouble getting transportation to medical appointments?: No Do you have trouble paying your heating and electricity bill?: No Do you have trouble taking care of your child, family member or friend?: No Do you have trouble with day-to-day activities such as bathing, preparing meals, shopping, managing finances, etc.?: Yes Are you currently unemployed and looking for a job?: Yes Are you interested in more education?: Yes Please select the resources that you would like help with: Daily support and Job search/training Currently or been in a relationship where the following occur: No concerns reported THRIVE Score: 3 AUDIT C Alcohol Use Questionnaire (AUDIT-C) 1. How often do you have a drink containing alcohol?: Monthly or less 2. How many drinks containing alcohol do you have on a typical day when you are drinking?: 1 or 2 3. How often do you have six or more drinks on one occasion?: Never Total Score: 1 CARYN-7 AMB Questionnaire CARYN-7 Date CARYN - 7 assessed: 04/29/24 Feeling nervous, anxious, or on edge: 2 = More than half the days Not being able to stop or control worryin = Nearly every day Worrying too much about different things: 3 = Nearly every day Trouble relaxin = Nearly every day Being so restless that it is hard to sit still: 1 = Several days Becoming easily annoyed or irritable: 3 = Nearly every day Feeling afraid as if something awful might happen: 3 = Nearly every day Total CARYN-7 score (0-4 normal; 5-9 mild; 10-14 moderate; 15-21 severe): 18 Source: Developed by Drs. Darrell Hogue, Lyubov Feliz, Edwin Stock and colleagues, with an educational kali from [employer] CARYN-7 Assessment Billing CARYN-7 Assessment Tool: CARYN-7 Assessment 17966 Physical exam (Primary Care) Vital Signs: Last Vital Signs Temp 98.4 F 04/29/24 08:50 Pulse 78 04/29/24 08:50 Resp 18 04/29/24 08:50 BP 96/60 04/29/24 08:50 Pulse Ox 97 04/29/24 08:50 Oxygen Delivery Method Room Air 04/29/24 08:50 BMI result Body Mass Index 31.3 Tobacco/Smoking Status: Tobacco use Status Tobacco use date assessed 04/29/24 04/29/24 09:00 Patient Tobacco Use Status Never used Tobacco 04/29/24 08:50 e-Cigarette/Vaping Use Never Used 04/29/24 08:50 PHQ-9: PHQ-9 Score PHQ-9: Total score 16 04/29/24 09:00 Depression Screening Interpretation: Positive Thrive Assessment: Date of Thrive Assessment Date Thrive assessed 04/29/24 04/29/24 09:00 Currently or been in a relationship where the following occur: No concerns reported Coding Level of Care Code Est Pt Level 3 (45153) Diagnoses Anxiety and depression F41.9; F32.9 Right shoulder pain M25.511 Additional Codes CARYN-7 Assessment Billing - CARYN-7 Assessment Tool: CARYN-7 Assessment 35116 ([id number]) PHQ-9 - 71984 - PHQ-9 Billing: Yes ([id number]) Assessment & Plan Assessment & Plan (1) Anxiety and depression: Code(s): F41.9 - Anxiety disorder, unspecified; F32.9 - Major depressive disorder, single episode, unspecified Category: Medical (2) Right shoulder pain: Code(s): M25.511 - Pain in right shoulder Category: Medical Plan . Orders: Orders Complete Blood Count Auto Diff Today F32.9 - Major depressive disorder, single episode, unspecified, F41.9 - Anxiety disorder, unspecified Comprehensive [place]. Panel Fast Today F32.9 - Major depressive disorder, single episode, unspecified, F41.9 - Anxiety disorder, unspecified UA CC w/rflx Micro + Cult Today F32.9 - Major depressive disorder, single episode, unspecified, F41.9 - Anxiety disorder, unspecified Lipid Panel Today F32.9 - Major depressive disorder, single episode, unspecified, F41.9 - Anxiety disorder, unspecified TSH reflex Free T4 Today F32.9 - Major depressive disorder, single episode, unspecified, F41.9 - Anxiety disorder, unspecified XR shoulder LT min 2V Today M25.511 - Pain in right shoulder Medications: Changed From bupropion HCl XL (Wellbutrin XL) 300 mg PO QAM 90 tabs 1RF To bupropion HCl XL (Wellbutrin XL) 150 mg PO QAM
== END 2024-04-29 09:43 | disposition home or self-care (01) ==
PROVIDERS: PCP Nurse Practitioner Family; Visit Provider Nurse Practitioner Family
DX: F41.9 Anxiety disorder, unspecified (principal); F32.9 Major depressive disorder, single episode, unspecified; M25.511 Pain in right shoulder

== ENCOUNTER → 2024-04-29 09:47 | Outpatient (BNV) | payer OTHER, SELFPAY | PROVIDERS: PCP Nurse Practitioner Family; Visit Provider Radiology Diagnostic Radiology | DX: M25.511 Pain in right shoulder (principal) | CPT/HCPCS: 73030 ==

== ENCOUNTER → 2024-08-01 10:38 | Outpatient (BNVA) | payer OTHER, SELFPAY | PROVIDERS: PCP Nurse Practitioner Family ==

== ENCOUNTER 2024-08-06 08:10 | Outpatient (AMB) | payer OTHER, SELFPAY ==
--- NOTE | 2024-08-06 07:35 | MHC.PC.OV ---
Intake Visit Reasons: Discuss medical needs per [facility] [phone] Allergies shellfish derived Allergy (Unknown, Verified 08/06/24 07:37) itchy throat, tongue swelling mushroom Allergy (Verified 08/06/24 07:37) Hives pear Allergy (Verified 08/06/24 07:37) Itching strawberry Allergy (Verified 08/06/24 07:37) Hives sunflower seed Allergy (Verified 08/06/24 07:37) Itching aripiprazole [Abilify] Adverse Reaction (Unknown, Verified 08/06/24 07:37) Hallucinations Medication List - Last Reconciled 08/06/24 by Saroj Mercado, [facility]- bupropion HCl SR mg PO QAM bupropion HCl SR mg PO DAILY bupropion HCl XL (Wellbutrin XL) 150 mg PO QAM epinephrine (EpiPen 2-Stephon) 0.3 mg (0.3 mL) IM Q4H PRN fluticasone propionate 50 mcg/actuation (Allergy Relief (fluticasone)) 1 spray intranasal Q12H hydroxyzine HCl 25 mg PO BEDTIME lorazepam 1 mg PO BID 30 days prazosin 1 mg PO QPM prazosin mg PO risperidone 1 mg PO BID trazodone 100 mg PO BEDTIME PRN Tobacco use date assessed: 04/29/24 Dental Screening Dental Screen Date: 04/29/24 HPI Discuss medical needs per [facility] [phone] HPI Details History of Present Illness The patient is a 33-year-old female presenting with worsening depressive symptoms. This exacerbation follows her mother's two-month absence, during which she experienced diminished mood and motivation consistent with Major Depressive Disorder. She reported difficulty maintaining her usual level of cleanliness and organization at home, affected by her OCD. The patient continued working but felt a significant lack of motivation. Her mental health history includes Major Depressive Disorder, Generalized Anxiety Disorder, PTSD, and OCD, for which she is under the care of a psychiatrist and therapist. The patient confirmed she had no suicidal or homicidal thoughts at this time. Review of Systems - Psychiatric: Reports worsening depression, decreased motivation, increased isolation. Denies suicidal ideation, denies homicidal ideation. Plan In response to the exacerbation of the patient's depressive symptoms due to her mother's absence, I will have (CCA) conducted to evaluate supportive needs. Continuation of care by her psychiatrist and therapist is recommended, ensuring therapeutic adjustments as necessary. Ongoing monitoring of her mental state is essential, particularly due to the absence of suicidal ideation currently. The aim is to address her decreased focus and challenge OCD symptoms through appropriate support and home management strategies. Discussion Notes During our discussion, I emphasized the likely link between the patient's mother's absence and her worsening depressive symptoms. I would like CCA to evaluate her current situation and identify further needs. We discussed the importance of maintaining her therapeutic relationship with both her psychiatrist and therapist, who are vital in her overall management plan. I underscored the importance of close monitoring for any changes in her mental status, particularly due to current stressors, and providing support to manage her home environment more effectively. Review of her progress and reassessment of her care plan will be pursued as needed. Patient Instructions - Continue sessions with your psychiatrist and therapist. - Participate in the CCA to assess your current needs. - Monitor your mental health symptoms closely, and report any worsening symptoms. - Work on strategies to improve your home environment with support when available. - Reach out if you have any thoughts of harm to yourself or others. [facility] Medical History Complex ovarian cyst Decreased appetite Left breast mass Menorrhagia Paresthesia of skin Scoliosis Surgical History Hx of breast reduction, elective Family History Father No problems noted. Mother No problems noted. Social History Household Members: None Housing: Apartment Alcohol intake: current Alcohol intake frequency: does not drink Patient Tobacco Use Status: Never used Tobacco Years Smoked: she smoked when she was 14 e-Cigarette/Vaping Use: Never Used Second Hand Smoke Exposure: Yes Substance Use Type: Marijuana service: No Current occupational status: employed Current occupation: [employer] Current occupational exposures/hazards: No Cognitive needs: No Hearing needs: No Vision needs: Yes Questionnaire Thrive Questionnaire Date Thrive assessed: 04/29/24 CARYN-7 AMB Questionnaire CARYN-7 Date CARYN - 7 assessed: 04/29/24 Source: Developed by Drs. Darrell Hogue, Lyubov Feliz, Edwin Stock and colleagues, with an educational kali from [employer]. Physical exam (Primary Care) Tobacco/Smoking Status: Tobacco use Status Tobacco use date assessed 04/29/24 04/29/24 09:00 Patient Tobacco Use Status Never used Tobacco 04/29/24 08:50 e-Cigarette/Vaping Use Never Used 04/29/24 08:50 Thrive Assessment: Date of Thrive Assessment Date Thrive assessed 04/29/24 08/01/24 10:43 Telehealth Telehealth Telehealth Platform: [employer] Location of provider rendering services: practice address Location of patient: address on file Patient Identification confirmed using: Name, : Yes Telehealth method: video Patient verbally consented to treatment: Yes Patient verbally consented to billing insurance company: Yes Patient informed of any privacy concerns related to visit: Yes Minutes spent on Phone/Video with Pt.: 15 Coding Level of Care Code Tele Est Pt Level 3 (36677) Diagnoses Severe recurrent major depressive disorder with psychotic features F33.3 Post-traumatic stress disorder, chronic F43.12 Anxiety F41.9 Assessment & Plan Assessment & Plan (1) Severe recurrent major depressive disorder with psychotic features: Code(s): F33.3 - Major depressive disorder, recurrent, severe with psychotic symptoms Category: Medical (2) Post-traumatic stress disorder, chronic: Code(s): F43.12 - Post-traumatic stress disorder, chronic Category: Medical (3) Anxiety: Code(s): F41.9 - Anxiety disorder, unspecified Category: Medical Plan .
== END 2024-08-06 08:35 | disposition home or self-care (01) ==
LOC: HO.HMCC 08:10
PROVIDERS: PCP Nurse Practitioner Family; Visit Provider Nurse Practitioner Family
DX: F33.3 Major depressive disorder, recurrent, severe with psychotic symptoms (principal); F43.12 Post-traumatic stress disorder, chronic; F41.9 Anxiety disorder, unspecified

== ENCOUNTER → 2024-08-06 08:10 | Outpatient (BNVA) | payer OTHER, SELFPAY | PROVIDERS: PCP Nurse Practitioner Family; Visit Provider Nurse Practitioner Family | DX: F33.3 Major depressive disorder, recurrent, severe with psychotic symptoms (principal); F43.12 Post-traumatic stress disorder, chronic; F41.9 Anxiety disorder, unspecified ==

== ENCOUNTER 2024-09-05 09:52 | Outpatient (AMB) | payer OTHER, SELFPAY ==
--- NOTE | 2024-09-05 09:58 | A.OFFPC_ITS ---
Vital Signs 09/05/24 09:59 Height 5 ft 2 in Weight 193 lb BMI 35.3 BP 104/70 Blood Pressure Location Lt brachial Position Sitting Pulse 82 Pulse Source Pulse Oximeter Pulse Oximetry (%) 97 Oxygen Delivery Method Room Air Intake Visit Reasons: 3 months f/up Pecan Mallow Dipper Required: No Allergies shellfish derived Allergy (Unknown, Verified 09/05/24 09:59) itchy throat, tongue swelling mushroom Allergy (Verified 09/05/24 09:59) Hives pear Allergy (Verified 09/05/24 09:59) Itching strawberry Allergy (Verified 09/05/24 09:59) Hives sunflower seed Allergy (Verified 09/05/24 09:59) Itching aripiprazole (Abilify) Adverse Reaction (Unknown, Verified 09/05/24 09:59) Hallucinations fresh fruit Allergy (Intermediate, Uncoded 09/05/24 10:29) Unknown Medication List - Last Reconciled 09/05/24 by LINDA Queen-ADELAIDE epinephrine (EpiPen 2-Stephon) 0.3 mg (0.3 mL) IM Q4H PRN fluticasone propionate 50 mcg/actuation (Allergy Relief (fluticasone)) 1 spray intranasal Q12H Tobacco use date assessed: 04/29/24 Dental Screening Dental Screen Date: 04/29/24 HPI 3 months f/up HPI Details Chief Complaint The patient presents for follow-up on anxiety and depression management. History of Present Illness The patient is a 33-year-old female presenting with anxiety and depression. She reports doing fair and denies any suicidal ideation or homicidal thoughts. The patient has been attending therapy sessions weekly, which she notes have made a positive difference. Previously, she attended therapy every other week but increased the frequency to weekly sessions. She plans to resume consultations with her psychiatrist, whom she has seen for a long time. Social History - Family: Very close with her mother, wh o was present during the visit. Health Maintenance Review of Systems - Psychiatric: Reports anxiety and depre ssion. Denies suicidal ideation or homicidal thoughts. Physical Exam General: Cooperative, healthy appearing, comfortable, no acute distress and well developed Orientation: Patient oriented x3 Limitations: No limitations Head: Normal to inspection Ears: Hearing grossly normal bilaterally Nose: Normal external nose present Face and sinus: Normal facial exam Eyes: Appearance normal, both eyes and all related structures Neck: Normal visual inspection and Yes full ROM Respiratory: Normal respiratory effort and able to speak in complete sentences. Clear to auscultation bilaterally Cardiovascular: Regular rate and rhythm. Normal S1 and S2 GI: Normal to inspection. Soft to palpation and nontender Skin: No rashes or lesions noted Neuro: Patient oriented x3 Extremities: Normal to inspection Results Plan The patient will continue with weekly therapy sessions, as she reports a positive impact from this frequency. She is also planning to resume consultations with her psychiatrist to further manage her anxiety and depression. [facility] Medical History Scoliosis Complex ovarian cyst Paresthesia of skin Decreased appetite Left breast mass Menorrhagia Surgical History (Reviewed 09/05/24 @ 10: by FELICIANO Queen) Hx of breast reduction, elective Family History Father No problems noted. Mother No problems noted. Social History Household Members: None Housing: Apartment Alcohol intake: current Alcohol intake frequency: does not drink Patient Tobacco Use Status: Never used Tobacco Years Smoked: she smoked when she was 14 e-Cigarette/Vaping Use: Never Used Second Hand Smoke Exposure: Yes Substance Use Type: Marijuana service: No Current occupational status: employed Current occupation: [employer] Current occupational exposures/hazards: No Cognitive needs: No Hearing needs: No Vision needs: Yes Questionnaire Thrive Questionnaire Date Thrive assessed: 09/05/24 I am a: Patient What is your living situation today?: I have a place to live, but I am worried about losing it in the future Within the past 12 months, did the food you bought not last and you didn't have the money to get more?: Sometimes True Within the past 12 months, did you worry whether your food would run out before you got money to buy more?: Sometimes True Do you have trouble paying for medicines?: No Do you have trouble getting transportation to medical appointments?: No Do you have trouble paying your heating and electricity bill?: No Do you have trouble taking care of your child, family member or friend?: No Do you have trouble with day-to-day activities such as bathing, preparing meals, shopping, managing finances, etc.?: Yes Are you currently unemployed and looking for a job?: Yes Are you interested in more education?: Yes Currently or been in a relationship where the following occur: No concerns reported THRIVE Score: 3 AUDIT C Alcohol Use Questionnaire (AUDIT-C) 1. How often do you have a drink containing alcohol?: Monthly or less 2. How many drinks containing alcohol do you have on a typical day when you are drinking?: 1 or 2 3. How often do you have six or more drinks on one occasion?: Never Total Score: 1 Score Reviewed/Action Taken: Yes CARYN-7 AMB Questionnaire CARYN-7 Date CARYN - 7 assessed: 04/29/24 Feeling nervous, anxious, or on edge: 2 = More than half the days Not being able to stop or control worryin = Nearly every day Worrying too much about different things: 3 = Nearly every day Trouble relaxin = Nearly every day Being so restless that it is hard to sit still: 1 = Several days Becoming easily annoyed or irritable: 3 = Nearly every day Feeling afraid as if something awful might happen: 3 = Nearly every day Total CARYN-7 score (0-4 normal; 5-9 mild; 10-14 moderate; 15-21 severe): 18 Source: Developed by Drs. Darrell Hogue, Lyubov Feliz, Edwin Stock and colleagues, with an educational kali from [employer]. CARYN-7 Assessment Billing CARYN-7 Assessment Tool: CARYN-7 Assessment 12051 Physical exam (Primary Care) Vital Signs: Last Vital Signs Pulse 82 09/05/24 09:59 BP 104/70 09/05/24 09:59 Pulse Ox 97 09/05/24 09:59 Oxygen Delivery Method Room Air 09/05/24 09:59 BMI result Body Mass Index 35.3 Tobacco/Smoking Status: Tobacco use Status Tobacco use date assessed 04/29/24 09/05/24 10:06 Patient Tobacco Use Status Never used Tobacco 09/05/24 10:06 e-Cigarette/Vaping Use Never Used 09/05/24 10:06 Thrive Assessment: Date of Thrive Assessment Date Thrive assessed 09/05/24 09/05/24 10:06 Currently or been in a relationship where the following occur: No concerns reported Coding Level of Care Code Est Pt Level 3 (65011) Diagnoses Anxiety and depression F41.9; F32.9 Additional Codes CARYN-7 Assessment Billing - CARYN-7 Assessment Tool: CARYN-7 Assessment 43118 ([id number]) Assessment & Plan Assessment & Plan (1) Anxiety and depression: Code(s): F41.9 - Anxiety disorder, unspecified; F32.9 - Major depressive disorder, single episode, unspecified Category: Medical Plan .
[2024-09-05 09:59] VITALS: BP 104/70; PULSE 82; O2SAT 97; BMI 35.3
== END 2024-09-05 11:01 | disposition home or self-care (01) ==
LOC: HO.HMCC 09:53
PROVIDERS: PCP Nurse Practitioner Family; Visit Provider Nurse Practitioner Family
DX: F41.9 Anxiety disorder, unspecified (principal); F32.9 Major depressive disorder, single episode, unspecified

== ENCOUNTER → 2024-09-05 09:52 | Outpatient (BNVA) | payer OTHER, SELFPAY | PROVIDERS: PCP Nurse Practitioner Family; Visit Provider Nurse Practitioner Family | DX: F41.9 Anxiety disorder, unspecified (principal); F32.A Depression, unspecified | CPT/HCPCS: 96127; 99212 ==

== ENCOUNTER 2024-10-04 10:10 | Outpatient (REF) | payer OTHER, SELFPAY ==
[2024-10-04 13:11] LABS: MANUAL DIFF FLAG NO
[2024-10-04 13:26] LABS: Hematocrit 40.2 % (37.0-47.0); Hemoglobin 13.0 g/dl (12.0-16.0); Imm Gran Abs Auto 0.01 X10*3/uL (0.00-0.03); Imm Gran Pct Auto 0.3 % (0.0-0.4); Lymphocytes Absolute Auto 1.2 X10*3/uL (1.2-4.9); Mean Corpuscular HGB Conc 32.3 g/dl (31.0-35.0); Mean Corpuscular Hemoglobin 27.8 pg (27.0-33.0); Mean Corpuscular Volume 85.9 fL (80.0-98.0); NRBC Abs Auto 0.000 X10*3/uL (0.0-0.012); NRBC Pct Auto 0.0 /100WBC (0.0-0.2); Platelet Count 269 X10*3/uL (160-400); Red Blood Count 4.68 X10*6/uL (4.20-5.50); White Blood Count 3.8 X10*3/uL (4.8-10.8)
[2024-10-04 13:57] LABS: Alanine Aminotransferase 27 U/L (0-31); Albumin Level 4.0 g/dL (3.5-5.0); Alkaline Phosphatase 76 U/L (39-117); Anion Gap 9 (12-20); Aspartate Amino Transferase 31 U/L (5-31); Blood Urea Nitrogen 13 mg/dL (9-16); Calcium 8.6 mg/dL (8.4-10.2); Carbon Dioxide 26 mmol/L (22-29); Chloride 106 mmol/L (96-108); Cholesterol 158 mg/dL (<200); Estimated Glomerular Filt Rate > 60; HDL Cholesterol 57 mg/dL (>40); Potassium 3.8 mmol/L (3.3-5.1); Sodium 137 mmol/L (135-145); Total Protein 7.4 g/dL (6.5-8.0); Triglycerides 78 mg/dL (<150)
[2024-10-04 14:10] LABS: Appearance Urine Clear; Glucose Urine UA Negative (Negative); PH 5.5 (5.0-9.0); Specific Gravity - Urine 1.020 (1.005-1.025)
== END 2024-10-04 10:11 | disposition home or self-care (01) ==
LOC: HO.HMGCLDS 10:10
PROVIDERS: PCP Nurse Practitioner Family; Visit Provider Nurse Practitioner Family
DX: Z13.6 Encounter for screening for cardiovascular disorders (principal); F41.9 Anxiety disorder, unspecified; F32.9 Major depressive disorder, single episode, unspecified
CPT/HCPCS: 36415; 80053; 80061; 81003; 84443; 85025

== ENCOUNTER 2024-11-05 06:57 | Outpatient (AMB) | payer OTHER, SELFPAY ==
--- NOTE | 2024-11-05 07:52 | A.OFFPC_ITS ---
Intake Visit Reasons: 2m follow up Allergies shellfish derived Allergy (Unknown, Verified 09/05/24 09:59) itchy throat, tongue swelling mushroom Allergy (Verified 09/05/24 09:59) Hives pear Allergy (Verified 09/05/24 09:59) Itching strawberry Allergy (Verified 09/05/24 09:59) Hives sunflower seed Allergy (Verified 09/05/24 09:59) Itching aripiprazole (Abilify) Adverse Reaction (Unknown, Verified 09/05/24 09:59) Hallucinations fresh fruit Allergy (Intermediate, Uncoded 09/05/24 10:29) Unknown Medication List - Last Reconciled 11/05/24 by LINDA Queen-ADELAIDE epinephrine (EpiPen 2-Stephon) 0.3 mg (0.3 mL) IM Q4H PRN fluticasone propionate 50 mcg/actuation (Allergy Relief (fluticasone)) 1 spray intranasal Q12H hydroxyzine HCl 25 mg PO BID PRN prazosin 5 mg PO QPM trazodone 100 mg PO DAILY Tobacco use date assessed: 04/29/24 Dental Screening Dental Screen Date: 04/29/24 HPI 2m follow up HPI Details History of Present Illness The patient is a 33-year-old female presenting for a telehealth follow-up visit. She reports ongoing management of anxiety and depression with the assistance of a therapist and psychiatrist. Recently, she restarted medications including trazodone, prazosin, and hydroxyzine, which she had been on previously. The patient has a slight leukopenia, which may be related to her medications. A referral to hematology for further evaluation has been planned. She reports bilateral shoulder dislocations, although she has never required emergency care for resetting. The description suggests crepitus rather than complete dislocation. A previous shoulder X-ray was negative, and physical therapy is recommended to improve shoulder joint strength. Review of Systems - Psychiatric: Reports anxiety and depre ssion. Denies suicidal ideation or homicidal ideation. - Musculoskeletal: Reports bilateral francisco ulder dislocations. Denies loss of use of an upper extremity. - General: Denies fevers or chills. - Cardiovascular: Denies chest pain. - Respiratory: Denies shortness of breat h. Plan 1. Anxiety The patient continues to manage anxiety with the support of a therapist and psychiatrist. She has restarted medications including trazodone, prazosin, and hydroxyzine. 2. Depression The patient is under the care of a therapist and psychiatrist for depression management. She has resumed medications previously prescribed, including trazodone, prazosin, and hydroxyzine. 3. Leukopenia The patient has a slight leukopenia, potentially related to her medications. A referral to hematology for further evaluation has been made. 4. Bilateral Shoulder Crepitus The patient reports bilateral shoulder dislocations, though they appear to be crepitus rather than complete dislocations. A previous shoulder X-ray was negative, and physical therapy is recommended to improve joint strength. Discussion Notes I discussed with the patient the continuation of her current psychiatric management plan, including her medications and therapy sessions. I also explained the referral to hematology for her leukopenia and the recommendation for physical therapy to address her shoulder issues. Patient Instructions - Continue current medications as prescr ibed by your psychiatrist. - Attend scheduled therapy sessions. - Follow up with hematology as referred for leukopenia evaluation. - Begin physical therapy to strengthen s houlder joints. [facility] Medical History Scoliosis Complex ovarian cyst Paresthesia of skin Decreased appetite Left breast mass Menorrhagia Surgical History Hx of breast reduction, elective Family History Father No problems noted. Mother No problems noted. Social History Household Members: None Housing: Apartment Alcohol intake: current Alcohol intake frequency: does not drink Patient Tobacco Use Status: Never used Tobacco Years Smoked: she smoked when she was 14 e-Cigarette/Vaping Use: Never Used Second Hand Smoke Exposure: Yes Substance Use Type: Marijuana service: No Current occupational status: employed Current occupation: [employer] Current occupational exposures/hazards: No Cognitive needs: No Hearing needs: No Vision needs: Yes Questionnaire Thrive Questionnaire Date Thrive assessed: 04/29/24 I am a: Patient What is your living situation today?: I have a place to live, but I am worried about losing it in the future Within the past 12 months, did the food you bought not last and you didn't have the money to get more?: Sometimes True Within the past 12 months, did you worry whether your food would run out before you got money to buy more?: Sometimes True Do you have trouble paying for medicines?: No Do you have trouble getting transportation to medical appointments?: No Do you have trouble paying your heating and electricity bill?: No Do you have trouble taking care of your child, family member or friend?: No Do you have trouble with day-to-day activities such as bathing, preparing meals, shopping, managing finances, etc.?: Yes Are you currently unemployed and looking for a job?: Yes Are you interested in more education?: Yes Currently or been in a relationship where the following occur: No concerns reported THRIVE Score: 3 CARYN-7 AMB Questionnaire CARYN-7 Date CARYN - 7 assessed: 04/29/24 Source: Developed by Drs. Darrell Hogue, Lyubov Feliz, Edwin Stock and colleagues, with an educational kali from [employer]. Physical exam (Primary Care) Tobacco/Smoking Status: Tobacco use Status Tobacco use date assessed 04/29/24 09/05/24 10:06 Patient Tobacco Use Status Never used Tobacco 09/05/24 10:06 e-Cigarette/Vaping Use Never Used 09/05/24 10:06 Thrive Assessment: Date of Thrive Assessment Date Thrive assessed 04/29/24 10/29/24 13:23 Currently or been in a relationship where the following occur: No concerns rep orted Telehealth Telehealth Telehealth Platform: [facility] Location of provider rendering services: practice address Location of patient: address on file Patient Identification confirmed using: Name, : Yes Telehealth method: video Patient verbally consented to treatment: Yes Patient verbally consented to billing insurance company: Yes Patient informed of any privacy concerns related to visit: Yes Minutes spent on Phone/Video with Pt.: 12 Coding Level of Care Code Tele Est Pt Level 3 (17355) Diagnoses Leukopenia D72.819 Bilateral shoulder pain M25.511; M25.512 Depression with anxiety F41.8 Assessment & Plan Assessment & Plan (1) Leukopenia: Code(s): D72.819 - Decreased white blood cell count, unspecified Category: Medical (2) Bilateral shoulder pain: Code(s): M25.511 - Pain in right shoulder; M25.512 - Pain in left shoulder Category: Medical (3) Depression with anxiety: Code(s): F41.8 - Other specified anxiety disorders Category: Medical Plan . Orders: Orders PT Evaluation and Treatment Today M25.511 - Pain in right shoulder, M25.512 - Pain in left shoulder Referrals Hematology & Oncology Referral D72.819 - Decreased white blood cell count, unspecified
== END 2024-11-05 09:42 | disposition home or self-care (01) ==
LOC: HO.HMCC 06:57
PROVIDERS: PCP Nurse Practitioner Family; Visit Provider Nurse Practitioner Family
DX: M25.511 Pain in right shoulder (principal); D72.819 Decreased white blood cell count, unspecified; M25.512 Pain in left shoulder; F41.8 Other specified anxiety disorders

== ENCOUNTER 2025-01-22 15:25 | Outpatient (AMB) | payer OTHER, SELFPAY ==
[2025-01-22 15:29] VITALS: BP 104/64; PULSE 89; O2SAT 98; BMI 38.6
--- NOTE | 2025-01-22 15:29 | A.OFFPC_ITS ---
Vital Signs 01/22/25 15:29 Height 5 ft 2 in Weight 211 lb BMI 38.6 BP 104/64 Blood Pressure Location Lt brachial Position Sitting Pulse 89 Pulse Source Pulse Oximeter Pulse Oximetry (%) 98 Oxygen Delivery Method Room Air Intake Visit Reasons: PE Fundraising Specialist Required: No Accompanied by: Self / Same As Patient Allergies shellfish derived Allergy (Unknown, Verified 01/22/25 15:32) itchy throat, tongue swelling mushroom Allergy (Verified 01/22/25 15:32) Hives pear Allergy (Verified 01/22/25 15:32) Itching strawberry Allergy (Verified 01/22/25 15:32) Hives sunflower seed Allergy (Verified 01/22/25 15:32) Itching aripiprazole (Abilify) Adverse Reaction (Unknown, Verified 01/22/25 15:32) Hallucinations fresh fruit Allergy (Intermediate, Uncoded 01/22/25 15:32) Unknown Medication List - Last Reconciled 01/22/25 by LINDA Queen- epinephrine (EpiPen 2-Stephon) 0.3 mg (0.3 mL) IM Q4H PRN fluticasone propionate 50 mcg/actuation (Allergy Relief (fluticasone)) 1 spray intranasal Q12H hydroxyzine HCl 25 mg PO BID PRN prazosin 5 mg PO QPM trazodone 100 mg PO DAILY Tobacco use date assessed: 01/22/25 Dental Screening Dental Screen Date: 01/22/25 Did you have a dental visit in the last 12 months?: Yes Did you have a dental problem in the last 6 months where you did not have access to dental care?: No Was dental information given to patient?: Patient has dentist HPI PE HPI Details History of Present Illness The patient is a 34 year old individual presenting for a physical exam. The patient has a history of morbid obesity. The patient has a significant history of anxiety and depression but is doing well mentally. The patient receives care from a psychiatrist and a therapist for these conditions. The patient denies any suicidal or homicidal ideation. The patient has a raw silk grader for routine care. Health Maintenance As part of the patient's physical exam, labs will be ordered in the near future. The patient will continue routine gynecological care. 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 Review of Systems - Psychiatric: Denies suicidal ideation and homicidal ideation. - Cardiovascular: Denies chest pain. - Respiratory: Denies shortness of breat h. - Gastrointestinal: Denies abdominal steffi n, hematochezia, constipation, and diarrhea. Physical Exam General: Cooperative, healthy appearing, comfortable, no acute distress and well developed, but morbidly obese Orientation: Patient oriented x3 Limitations: No limitations Head: Normal to inspection Ears: Hearing grossly normal bilaterally Nose: Normal external nose present Face and sinus: Normal facial exam Eyes: Appearance normal, both eyes and all related structures Neck: Normal visual inspection and Yes full ROM Respiratory: Normal respiratory effort and able to speak in complete sentences. Clear to auscultation bilaterally Cardiovascular: Regular rate and rhythm. Normal S1 and S2 GI: Normal to inspection. Soft to palpation and nontender Skin: No rashes or lesions noted Neuro: Patient oriented x3 Extremities: Normal to inspection Results Plan 1. Morbid Obesity The patient's morbid obesity was noted during the physical exam. 2. Anxiety And Depression The patient is doing well mentally with a history of anxiety and depression and will continue to see a psychiatrist and therapist. Discussion Notes I noted the patient is morbidly obese, but the physical exam was otherwise completely benign. I advised the patient that I will be ordering labs in the near future. The patient's mental health appears stable, with ongoing care from a psychiatrist and therapist for a history of anxiety and depression. Patient Instructions - Plan to have lab work done in the near future. - Continue to see your psychiatrist and therapist for your mental health. - Continue your routine visits with your raw silk grader. [facility] Medical History Scoliosis Complex ovarian cyst Paresthesia of skin Decreased appetite Left breast mass Menorrhagia Surgical History Hx of breast reduction, elective Family History Father No problems noted. Mother No problems noted. Social History Household Members: None Housing: Apartment Alcohol intake: current Alcohol intake frequency: does not drink Patient Tobacco Use Status: Never used Tobacco Years Smoked: she smoked when she was 14 e-Cigarette/Vaping Use: Never Used Second Hand Smoke Exposure: Yes Substance Use Type: Marijuana service: No Current occupational status: employed Current occupation: [employer] Current occupational exposures/hazards: No Cognitive needs: No Hearing needs: No Vision needs: Yes Questionnaire PHQ-9 Over the last 2 weeks, how often have you been bothered by any of the following problems? 1. Little interest or pleasure in doing things: not at all 2. Feeling down, depressed, or hopeless: not at all 3. Trouble falling or staying asleep, or sleeping too much: not at all 4. Feeling tired or having little energy: not at all 5. Poor appetite or overeating: not at all 6. Feeling bad about yourself - or that you are a failure or have let yourself or your family down: not at all 7. Trouble concentrating on things, such as reading the newspaper or watching television: not at all 8. Moving or speaking so slowly that other people could have noticed. Or the opposite - being so fidgety or restless that you have been moving around a lot more than usual: not at all 9. Thoughts that you would be better off or of hurting yourself in some way: not at all Total score: 0 Depression Screening Interpretation: Negative Depression Screening Done: Yes 33958 - PHQ-9 Billing: Yes Source: Developed by Drs. Darrell Hogue, Lyubov Feliz, Edwin Stock and colleagues, with an educational kali from [employer]. Thrive Questionnaire Date Thrive assessed: 04/29/24 I am a: Patient What is your living situation today?: I have a place to live, but I am worried about losing it in the future Within the past 12 months, did the food you bought not last and you didn't have the money to get more?: Sometimes True Within the past 12 months, did you worry whether your food would run out before you got money to buy more?: Sometimes True Do you have trouble paying for medicines?: No Do you have trouble getting transportation to medical appointments?: No Do you have trouble paying your heating and electricity bill?: No Do you have trouble taking care of your child, family member or friend?: No Do you have trouble with day-to-day activities such as bathing, preparing meals, shopping, managing finances, etc.?: Yes Are you currently unemployed and looking for a job?: Yes Are you interested in more education?: Yes Currently or been in a relationship where the following occur: No concerns reported THRIVE Score: 3 CARYN-7 AMB Questionnaire CARYN-7 Date CARYN - 7 assessed: 01/22/25 Feeling nervous, anxious, or on edge: 0 = Not at all Not being able to stop or control worryin = Not at all Worrying too much about different things: 0 = Not at all Trouble relaxin = Not at all Being so restless that it is hard to sit still: 0 = Not at all Becoming easily annoyed or irritable: 0 = Not at all Feeling afraid as if something awful might happen: 0 = Not at all Total CARYN-7 score (0-4 normal; 5-9 mild; 10-14 moderate; 15-21 severe): 0 Source: Developed by Drs. Darrell Hogue, Lyubov Feliz, Edwin Stock and colleagues, with an educational kali from [employer]. CARYN-7 Assessment Billing CARYN-7 Assessment Tool: CARYN-7 Assessment 13202 Physical exam (Primary Care) Vital Signs: Last Vital Signs Pulse 89 01/22/25 15:29 BP 104/64 01/22/25 15:29 Pulse Ox 98 01/22/25 15:29 Oxygen Delivery Method Room Air 01/22/25 15:29 BMI result Body Mass Index 38.6 Tobacco/Smoking Status: Tobacco use Status Tobacco use date assessed 01/22/25 01/22/25 15:34 Patient Tobacco Use Status Never used Tobacco 01/22/25 15:34 e-Cigarette/Vaping Use Never Used 01/22/25 15:34 PHQ-9: PHQ-9 Score PHQ-9: Total score 0 01/22/25 16:17 Depression Screening Interpretation: Negative Thrive Assessment: Date of Thrive Assessment Date Thrive assessed 04/29/24 01/22/25 15:34 Currently or been in a relationship where the following occur: No concerns reported Office Procedures Flu Questionnaire Does the patient have a severe egg allergy?: No Does the patient have severe life threatening allergies?: No Does the patient have a fever or illness today?: No Has the patient ever had Guillain-[place] Syndrome?: No Has the patient ever had any past reaction to a flu shot?: No Immunizations Fluarix 8611-0524 (PF) 45 mcg (15 mcg x 3)/0.5 mL IM syringe Performing Provider: FELICIANO Queen Performing Location: [facility] Administered by: Demetria Rebollar MA on 01/22/25 16:27 Dose Route Admin Location Dispensed Lot Number Expiration Date NDC Warehouse Associate Driver 0.5 mL IM Right Deltoid 0.5 mL [id number] 08/26/25 79660-961-33 [employer] VIS Given Date VIS Provided VIS Publication Date 01/22/25 Single Vaccine 24 Eligibility Eligibility Date Funding Source Not [facility] Eligible 01/22/25 Private Coding Level of Care Code Est Pt Prev Care 18-39y(96929) Diagnoses Physical exam Z00.00 Additional Codes CARYN-7 Assessment Billing - CARYN-7 Assessment Tool: CARYN-7 Assessment 76398 ([id number]) PHQ-9 - 12351 - PHQ-9 Billing: Yes ([id number]) Assessment & Plan Assessment & Plan (1) Physical exam: Code(s): Z00.00 - Encounter for general adult medical examination without abnormal findings Category: Medical Plan . Orders: Orders Comprehensive [place]. Panel Fast Today Z00.00 - Encounter for general adult medical examination without abnormal findings TSH reflex Free T4 Today Z00.00 - Encounter for general adult medical examination without abnormal findings UA CC w/rflx Micro + Cult Today Z00.00 - Encounter for general adult medical examination without abnormal findings Influenza [id number] Immunization Today Z23 - Encounter for immunization Complete Blood Count Auto Diff Today Z00.00 - Encounter for general adult medical examination without abnormal findings Lipid Panel Today Z00.00 - Encounter for general adult medical examination without abnormal findings
--- OUTSIDE RECORDS SUMMARY | 2025-01-22 17:45 | XMS_ITS | Encounter Summary ---
Author Organization [facility] Address [address] [place] [address] Care Team Providers Care Retail Pharmacy Merchandiser Name Role Phone Name, Fazal COHEN Primary Care Provider Unavailabl e Encounter Details Date Type Department Care Team Description 12/24/2010 Tool Tender Report Medical Records [address] [place] [address] Mary Yu MD [address] [place] [address] [address] [place] [address] Social History Tobacco Use Types Packs/Day Years Used Date Smoking Tobacco: Former Cigarettes Q uit: 02/27/2009 Comments:used to smoke 1 cig per day Alcohol Use Standard Drinks/Week Comments Yes 0 (1 standard drink = 0.6 oz pur e alcohol) rare Sex Assigned at Date Recorded Not on file documented as of this encounter Plan of Treatment Not on file documented as of this encounter Visit Diagnoses Not on filedocumented in this encounter Care Teams Retail Pharmacy Merchandiser Relationship Specialty Start Date End Date Name, MD Fazal PCP - General 10/29/09 documented as of this encounter
--- OUTSIDE RECORDS SUMMARY | 2025-01-22 17:45 | XMS_ITS | Encounter Summary ---
Author Organization [facility] Address [address] [place] [address] Care Team Providers Care Segment Block Layer Name Role Phone Name, Fazal COHEN Primary Care Provider Unavailabl e Encounter Details Date Type Department Care Team Description 03/22/2012 Ironmolder Report Medical Records [address] [place] [address] Darrell Velazquez Jr. [facility] [address] [place] [address] [address] [place] [address] Social History Tobacco Use Types Packs/Day Years Used Date Smoking Tobacco: Former Cigarettes Q uit: 02/27/2009 Smokeless Tobacco: Former Comments:used to smoke 1 cig per day Alcohol Use Standard Drinks/Week Comments Yes 0 (1 standard drink = 0.6 oz pur e alcohol) rare Sex Assigned at Date Recorded Not on file documented as of this encounter Plan of Treatment Not on file documented as of this encounter Visit Diagnoses Not on filedocumented in this encounter Care Teams Segment Block Layer Relationship Specialty Start Date End Date Name, MD Fazal PCP - General 10/29/09 documented as of this encounter
--- OUTSIDE RECORDS SUMMARY | 2025-01-22 17:45 | XMS_ITS | Encounter Summary ---
Author Organization [facility] Address [facility] [place] [address] Care Team Providers Care Chief Credit Officer Name Role Phone Name, Fazal COHEN Primary Care Provider Unavailabl e Encounter Details Date Type Department Care Team Description 02/09/2015 Business Doc Medical Records [address] [place] [address] Abstract, Provider Social History Tobacco Use Types Packs/Day Years [...] on filedocumented in this encounter Care Teams Chief Credit Officer Relationship Specialty Start Date End Date Name, MD Fazal PCP - General 10/29/09 documented as of this encounter
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
--- OUTSIDE RECORDS SUMMARY | 2025-01-22 17:45 | XMS_ITS | Encounter Summary ---
Author Organization [facility] Address [address] [place] [address] Care Team Providers Care Instrument Setter Name Role Phone Name, Fazal COHEN Primary Care Provider Unavailabl e Encounter Details Date Type Department Care Team Description 12/08/2011 Bleach Mixer Report Medical Records [address] [place] [address] Bladimir Allison MD Social History Tobacco Use Types Packs/Day Years [...] on filedocumented in this encounter Care Teams Instrument Setter Relationship Specialty Start Date End Date Name, MD Fazal PCP - General 10/29/09 documented as of this encounter
--- OUTSIDE RECORDS SUMMARY | 2025-01-22 17:45 | XMS_ITS | Encounter Summary ---
Author Organization [facility] Address [address] [place] [address] Care Team Providers Care Steeping Press Tender Name Role Phone Name, Fazal COHEN Primary Care Provider Unavailabl e Encounter Details Date Type Department Care Team Description 02/10/2014 Release of Information Medical Records [address] [place] [id number] Abstract, Provider Social History Tobacco Use Types [...] on filedocumented in this encounter Care Teams Steeping Press Tender Relationship Specialty Start Date End Date Name, MD Fazal PCP - General 10/29/09 documented as of this encounter
--- OUTSIDE RECORDS SUMMARY | 2025-01-22 17:45 | XMS_ITS | Encounter Summary ---
Author Organization [facility] Address [address] [place] [address] Care Team Providers Care Sequins Winder Name Role Phone Name, Fazal COHEN Primary Care Provider Unavailabl e Encounter Details Date Type Department Care Team Description 02/02/2012 Senior Mechanical Designer Report Medical Records [address] [place] [address] Darrell Velazquez Jr. [facility] [address] [place] [address] [address] [place] [address] Social History Tobacco Use Types Packs/Day Years [...] on filedocumented in this encounter Care Teams Sequins Winder Relationship Specialty Start Date End Date Name, MD Fazal PCP - General 10/29/09 documented as of this encounter
== END 2025-01-22 16:31 | disposition home or self-care (01) ==
LOC: HO.HMCC 15:25
PROVIDERS: PCP Nurse Practitioner Family; Visit Provider Nurse Practitioner Family
DX: Z23 Encounter for immunization (principal); Z00.00 Encounter for general adult medical examination without abnormal findings

== ENCOUNTER → 2025-01-22 15:25 | Outpatient (BNVA) | payer OTHER, SELFPAY | PROVIDERS: PCP Nurse Practitioner Family; Visit Provider Nurse Practitioner Family | DX: Z00.00 Encounter for general adult medical examination without abnormal findings (principal); F41.9 Anxiety disorder, unspecified; F32.A Depression, unspecified; E66.01 Morbid (severe) obesity due to excess calories; Z23 Encounter for immunization; Z68.38 Body mass index [BMI] 38.0-38.9, adult | CPT/HCPCS: 90471; 90656; 96127; 99395 ==

== ENCOUNTER → 2025-01-29 09:20 | Outpatient (BNV) | payer OTHER, SELFPAY | PROVIDERS: PCP Nurse Practitioner Family; Referring Provider Nurse Practitioner Family; Visit Provider Internal Medicine | DX: D72.819 Decreased white blood cell count, unspecified (principal) | CPT/HCPCS: 99203 ==